=== PATIENT | male | born 1940 | race Caucasian/White ===

== ENCOUNTER 2024-06-25 12:25 | Inpatient (IN) | payer MEDICARE, OTHER, SELFPAY ==
[2024-06-25] VITALS (8 sets, daily range): BP systolic 146–178; BP diastolic 75–80; PULSE 67–81; RESP 16–89; TEMP 36.6–36.9; O2SAT 93–95; BMI 29.2
--- NOTE | 2024-06-25 14:59 | XR_ITS ---
Examination: PA lateral chest 2 views TECHNIQUE: Upright PA lateral chest 2 views Exam date and time: June 25, 2024 1508 hours Comparison September 11, 2017 INDICATIONS: Shortness of breath today. FINDINGS: Mild chronic heart failure pattern Mild enlargement left ventricle CABG Prominent vascular congestion Fluid in the fissures on the lateral view Moderate right mild to moderate left pleural effusions IMPRESSION: Mild chronic heart failure pattern
--- NOTE | 2024-06-25 14:59 | EKG_ITS ---
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
--- NOTE | 2024-06-25 15:01 | PD.EDSOB ---
ED SOB =RME/HPI General Chief Complaint: Shortness of Breath/Dyspnea Stated Complaint: DIFF BREATHING FOR 4 WEEKS Time Seen by Provider: 06/25/24 14:45 Source: patient Arrival date/time: 06/25/24 12:25 83-year-old male significant past medical history of hypertension, cardiac stent hyperlipidemia, CABG in 1998, presents to the emergency department with complaints of intermittent shortness of breath and cough ongoing for 1 month. Reports he was previously treated and evaluated by his PCP has been on a course of amoxicillin, doxycycline, prednisone and albuterol inhaler and no improvement in symptoms. + positive orthopnea, cough, worsening BLE. no fever, chills, abdominal pain, diarrhea, dysuria, hematuria, hematochezia, melena, focal weakness, fall, blunt trauma, loss of consciousness, incontinence Mode of arrival: ambulatory Related Data Home Medications ?Medication ?Instructions ?Recorded ?Confirmed aspirin 81 mg tablet,delayed 81 mg PO QDAY 05/12/18 06/25/24 release (Aspir-) atorvastatin 40 mg tablet 40 mg PO QDAY 05/12/18 06/25/24 benazepril 10 mg tablet 10 mg PO QDAY 05/12/18 06/25/24 glipizide 5 mg tablet 5 mg PO QDAY 05/12/18 06/25/24 albuterol 90 mcg/actuation aerosol 2 inhalation PRN PRN asthma 06/25/24 inhaler amlodipine 10 mg-benazepril 40 mg 10 - 40 cap PO DAILY 06/25/24 06/25/24 capsule doxycycline hyclate 100 mg capsule 100 mg BID 06/25/24 06/25/24 fluticasone furoate 100 2 inh inhalation BID 06/25/24 06/25/24 mcg-vilanterol 25 mcg/dose inhalation powder (Breo Ellipta) prednisone 10 mg tablet 10 mg TID 06/25/24 06/25/24 Previous Rx's ?Medication ?Instructions ?Recorded amoxicillin 875 mg-potassium 1 tab PO BID #20 tabs 07/13/23 clavulanate 125 mg tablet ibuprofen 800 mg tablet 800 mg PO TID PRN pain #30 tabs 07/13/23 Allergies Allergy/AdvReac Type Severity Reaction Status Date / Time No Known Allergies Allergy Verified 06/25/24 12:28 Review of Systems Review of Systems Systems Reviewed: All systems reviewed, normal except as documented Narrative Review of Systems: Gen: No fever, no chills, no weight loss EYES: No discharge, no visual changes, no pain HEENT: No ear pain, no congestion, no sore throat PULM: + shortness of breath, +cough, no congestion CV: No chest pain, no dyspnea on exertion, no palpitations GI: No nausea, no vomiting, no diarrhea, no pain, no constipation : No frequency, no urgency,? no dysuria Musc/skel: No joint pain, no back pain, +BLE Skin: No rash? e ED Exam Narrative Physical exam: VITAL SIGNS: Reviewed. GENERAL APPEARANCE: Alert and interactive, follows commands, no acute distress, well developed, nourished, appears well. HEAD AND FACE: Non-traumatic. ENT: PERRL, pink conjunctivitis, eyelid no trauma, anterior chamber clear. Pinnas intact and no signs of trauma or erythema. Tonsils, no exudates, no abscesses noted. Mucous membrane moist. NECK: Supple, nontender, no thyromegaly, no masses, no nuchal rigidity. CHEST:+ respiratory rate increased, mild rhonchi note,no crepitus, no paradoxical movement, no retractions. LUNGS:+ mild rhonchi, no stridor, good breath sounds bilaterally. HEART: Regular rate, regular rhythm, no murmur, no gallops. VASCULAR:+ bilateral leg edema +2 ABDOMEN: Soft, positive bowel sounds, nondistended, no guarding, nontender, no rebound, no masses, no hepatomegaly, no splenomegaly, no hernias. RECTAL: Deferred. GENITAL: Deferred. NEUROLOGICAL: Gross motor function intact sensory function intact, Appropriate for age. MUSCULOSKELETAL: low back nontender, full range of motion. SKIN: Color pink, dry, good skin turgor, no rash, no lacerations, no abrasions, no contusions. LYMPHATICS: Deferred. Course Quality Measures none Orders Category Date Time Status COVID-19 Screening Questionnaire NOW Care 06/25/24 21:44 Active Decision to Admit X1 Care 06/25/24 21:44 Completed EKG (ED ONLY) *Do not use* NOW Care 06/25/24 14:59 Completed Insert IV NOW Care 06/25/24 21:40 Active NPO STAT Care 06/25/24 14:59 Active Consult to Cardiology Stat Cons 06/25/24 21:44 Ordered EKG (ED Only) Stat Exams 06/25/24 14:59 Draft XR chest 2V Stat Exams 06/25/24 14:59 Completed BNP [B-Type Natriuretic Peptide] Stat Lab 06/25/24 15:28 Completed CBC Stat Lab 06/25/24 15:28 Completed Comprehensive Metabolic Panel Stat Lab 06/25/24 15:28 Completed Lipase Stat Lab 06/25/24 15:28 Completed Magnesium Stat Lab 06/25/24 15:28 Completed Troponin I Stat Lab 06/25/24 15:28 Completed Troponin I Stat Lab 06/25/24 20:09 Completed Urinalysis Stat Lab 06/25/24 15:36 Completed Aspirin Med 06/25/24 21:40 Discontinued 325 mg PO X1 ONE Furosemide Inj [Lasix Inj] Med 06/25/24 21:40 Discontinued 40 mg IVP X1 ONE Oxygen Delivery NOW RT 06/25/24 21:43 Active Vital Signs Vital signs: Vital Signs Temperature 97.9 F 06/25/24 14:04 Pulse Rate 80 06/25/24 14:04 Respiratory Rate 20 06/25/24 14:04 Blood Pressure 167/75 H 06/25/24 14:04 Pulse Oximetry (%) 93 L 06/25/24 14:04 Oxygen Delivery Method Room Air 06/25/24 14:04 Shortness of Breath / Dyspnea MDM Narrative MDM Narrative:: this 83-year-old male, who presented to the emergency department with worsening shortness of breath for 4 weeks. + BNP 680, opponent mildly elevated serial, + Positive BLE chest x-ray demonstrates mild CHF pattern. Patient's oxygen room air 87 patient placed on oxygen 2 L bringing up to 93%. Patient does not take any Lasix at home. on my opinion patient warrants admission for IV Lasix and serial troponin and EKG. EKG medically necessary in the evaluation of chest pain and interpreted by me and ED physician at the time of patient evaluation. Normal sinus rhythm with a rate of 65. DE and QT intervals within normal limits. No ST/T changes. No STEMI. 2155- spoke to Weigher Bulker on-call who will gladly follow-up on patient while in admission. 2199- I did go ahead and speak to the hospitalist on-call they will come and evaluate the patient for admission. Patient data External records reviewed:: [facility] previous records Clinical information provided by:: patient Social determinants that could affect healthcare access:: none Patient has the following chronic illnesses:: no How is presenting disease/condition affected by chronic disease/condition?: no chronic disease Evaluation data The following diagnostics were reviewed and interpreted by me:: lab results, radiology exam(s) and EKG tracing(s) Lab and/or radiology exams considered but not ordered:: no Interpretation Summary: Examination: PA lateral chest 2 views TECHNIQUE: Upright PA lateral chest 2 views Exam date and time: June 25, 2024 1508 hours Comparison September 11, 2017 INDICATIONS: Shortness of breath today. FINDINGS: Mild chronic heart failure pattern Mild enlargement left ventricle CABG Prominent vascular congestion Fluid in the fissures on the lateral view Moderate right mild to moderate left pleural effusions IMPRESSION: Mild chronic heart failure pattern Medications / Prescriptions Medications or Prescriptions considered but not ordered:: no Medication administrations:: Medication Administration History Discontinued Medications Aspirin (Aspirin 325 Mg Tablet) 325 mg PO X1 ONE Stop: 06/25/24 21:41 Last Admin: 06/25/24 22:14 Dose: 325 mg Documented By: CHON Furosemide (Furosemide Inj 10 Mg/Ml 4ml Vial) 40 mg IVP X1 ONE Stop: 06/25/24 21:41 Last Admin: 06/25/24 22:24 Dose: 40 mg Documented By: CHON all medications administered and effective Consultations Consultation(s) initiated? (list below): Yes Diagnosis Shortness of Breath Differential Diagnosis: acute exacerbation of chronic obstructive airways disease, congestive heart failure, community acquired pneumonia and asthma with exacerbation Most likely diagnosis given after review of the tests above:: acute CHF, NSTEMI Admission Indicated Admission indicated?: indicated Admission Request Was there a request for admission?: Yes Admission Attestation Admission request attestation: Discussed case with [] from Hospitalist service regarding admission. Discussed patients ED course, exam findings, labs, and radiology results. The Hospitalist [agrees,declines] to accept the patient for admission. Disposition Plan Disposition Plan: Admit Discharge Plan Plan Patient Disposition: Admit Acute Care w/in Hospital Prescriptions/Referrals Prescriptions/Med Rec: No Action atorvastatin 40 mg Tablet 40 mg PO QDAY aspirin [Aspir-81] 81 mg Tablet,Delayed Release (Dr/Ec) 81 mg PO QDAY benazepril 10 mg Tablet 10 mg PO QDAY glipizide 5 mg Tablet 5 mg PO QDAY amoxicillin-pot clavulanate 875-125 mg tablet 1 tab PO BID Qty: 20 0RF ibuprofen 800 mg tablet 800 mg PO TID PRN (Reason: pain) Qty: 30 0RF prednisone 10 mg tablet 10 mg TID doxycycline hyclate 100 mg capsule 100 mg BID Patient Comments: TAKE 1 CAPSULE BY MOUTH TWICE A DAY FOR 7 DAYS albuterol 90 mcg/actuation Aerosol 2 INHALATION PRN PRN (Reason: asthma) amlodipine-benazepril 10-40 mg capsule 10 - 40 cap PO DAILY Patient Comments: TAKE 1 CAPSULE DAILY fluticasone furoate-vilanterol [Breo Ellipta] 100-25 mcg/dose blister with device 2 inh INHALATION BID Patient Comments: INHALE 1 PUFF BY MOUTH DAILY Referrals: Kyle West MD [Primary Care Provider] - In 1 week Problem List Clinical Impression: Congestive heart failure, Non-ST elevation NV (NSTEMI) Patient/Caregiver Discharge Instructions Discharge Activity: activity as tolerated Print Language: [place] Stand Alone Forms: Jacqueline Award Info., Patient Portal Info Letter PA/BED PLACEMENT COORDINATOR Supervising Physician PA/BED PLACEMENT COORDINATOR Supervising Physician: Dr Ramirez
[2024-06-25 15:39] LABS: Basophils # (Auto) 0.1 Thou/mm3 (0.0-0.2); Basophils % (Auto) 1 % (0-2.5); Eosinophils # (Auto) 0.2 Thou/mm3 (0.0-0.5); Eosinophils % (Auto) 2 % (0-10); Hematocrit 46.1 % (41.0-53.0); Hemoglobin 15.4 g/dL (13.5-16.0); Immature Granulocytes % (Auto) 0 % (0-0); Immature Granulocytes Auto 0.03 Thou/mm3 (0.00-0.00); Lymphocytes # (Auto) 1.1 Thou/mm3 (1.0-4.8); Lymphocytes % (Auto) 13 % (10-50); Mean Corpuscular HGB Conc 33.4 g/dl (31.0-37.0); Mean Corpuscular Hemoglobin 33.3 pg (25.0-35.0); Mean Corpuscular Volume 100 fL (80-100); Monocytes # (Auto) 0.6 Thou/mm3 (0.0-0.8); Monocytes % (Auto) 8 % (0-12); Neutrophils # (Auto) 6.2 Thou/mm3 (1.8-7.7); Neutrophils % (Auto) 76 % (37-80); Nucleated Red Blood Cell % 0 /100 WBC (0); Platelet Count 178 Thou/mm3 (140-440); RDW Standard Deviation 52.6 fL (35.1-43.9); Red Blood Count 4.62 Miln/mm3 (4.50-5.90); White Blood Count 8.2 Thou/mm3 (3.8-10.6)
[2024-06-25 16:12] LABS: Collection Type, Urine Clean Catch; Squamous Epithelial Cell,Urine 0 /hpf (0-5)
[2024-06-25 16:20] LABS: Bilirubin,Urine Negative (Negative); Blood,Urine 1+ (Negative); Clarity,Urine Clear (Clear/Hazy); Color,Urine Lt-Yellow (Lt Yel-Yel); Glucose, Urine Trace (Negative); Ketones,Urine Negative (Negative); Leukocyte Esterase,Urine Negative (Negative); Nitrite,Urine Negative (Negative); Protein,Urine 2+ (Neg - Trace); RBC,Urine 2 /hpf (0-3); Specific Gravity,Urine 1.023 (1.001-1.035); Urobilinogen,Urine Negative mg/dL (0.0-1.0); WBC,Urine 1 /hpf (0-5)
[2024-06-25 16:21] LABS: Alanine Aminotransferase 57 U/L (10-49); Albumin, Serum 4.7 gm/dL (3.4-4.8); Albumin/Globulin Ratio 1.9 (1.2-2.2); Alkaline Phosphatase 116 U/L (46-116); Anion Gap 10 (7-16); Aspartate Amino Transferase 57 U/L (0-34); BUN/Creatinine Ratio 20 Ratio (12-20); Bilirubin,Total 1.2 mg/dL (0.3-1.2); Blood Urea Nitrogen 32 mg/dL (9-23); Calcium 9.9 mg/dL (8.3-10.6); Calcium (Corrected) 9.9 mg/dL (8.5-10.1); Carbon Dioxide 20.4 mMol/L (20.0-31.0); Chloride 112 mMol/L (98-107); Creatinine (Component) 1.6 mg/dL (0.6-1.3); Globulin 2.5 gm/dL (2.3-3.5); Glucose 208 mg/dL (74-106); Lipase 88 U/L (12-53); Magnesium 2.4 mg/dL (1.6-2.6); Osmolality,Calculated 296 (275-295); Potassium 5.2 mMol/L (3.4-5.1); Sodium 142 mMol/L (136-145); Total Protein 7.2 gm/dL (5.7-8.2); eGFR 43 See Note
[2024-06-25 16:27] LABS: Troponin I 1.094 ng/mL (0.0-0.045)
[2024-06-25 18:34] LABS: B-Type Natriuretic Peptide 631 pg/mL (0-100)
[2024-06-25 20:40] LABS: Troponin I 1.121 ng/mL (0.0-0.045)
[2024-06-25] MEDS: Aspirin 325 MG TABLET PO (22:14)
--- NOTE | 2024-06-25 22:16 | PC.NURSE ---
Leeann Fischer [phone] cell number.
[2024-06-25] MEDS: FUROSEMIDE INJ 10 MG/ML 4ML VIAL 40 MG IVP (22:24)
--- NOTE | 2024-06-25 23:59 | ESHP_ITS ---
Documentation for date of: 06/25/24 HPI History of Present Illness Chief complaint: Shortness of breath History of present illness: A 83-year-old male with past medical history of hypertension, CAD s/p CABG in 1990, s/p stenting in 2018, prostate cancer s/p surgery presented to the hospital with chief complaints of shortness of breath since 4 weeks. At his baseline patient walks around the house and feeds his animals on daily basis. Since 4 weeks, patient noted to have difficulty in breathing and found limitation in his daily activities and taking longer time to complete usual activities. Denies PND, orthopnea, wheezing. Reported that he does not lay on his back because of his back problem and at the bedside stated that patient is sleeping well with occasional snoring noted. Patient endorsed that he noted increased frequency of micturition but exactly during the nights. Denies burning micturition. Patient also endorsed that he is having lower extremity swelling since almost 2 years and is not using any diuretic. Bilateral lower extremity swelling is gradually progressing and at current time it is extending up to thigh, noted recent worsening with legs becoming harder. Denies abdominal distention, pain, palpitations, syncopal episodes, chest pain, lower extremity pain. Recently patient went to her primary care and received steroids, antibiotics. Patient is following Dr. Marie for the CAD. ED Course: -Initial vitals were blood pressure 167/71 mmHg, pulse rate 88 bpm, respiratory rate 20/min, temperature 97.9 ?F, SpO2 93% with oxygen 2 L nasal cannula. -Labs significant for sodium 142, potassium 5.2, chloride 112, BUN 32, creatinine 1.6, troponin 1.12, BNP 631. Urinalysis showed 2+ proteinuria. EKG showed normal sinus rhythm. Chest x-ray showed bilateral moderate vascular congestion with bilateral pleural effusion more on the right side -In the ED, patient was given 40 Mg of furosemide and a dose of 325 Mg aspirin -Patient was admitted for acute hypoxic respiratory failure secondary to acute exacerbation of heart failure Past medical history: hypertension, CAD s/p CABG in 1990, s/p stenting in 2018, prostate cancer s/p surgery Past surgical history: CABG, stent for CAD Social history: Denies smoking, alcohol or other illicit drug abuse Medications: Aspirin, atorvastatin, benazepril Review of Systems Review of Systems Narrative Review of Systems: Constitutional: No Weight Change, No Fever, No Chills, No Night Sweats, Fatigue, Malaise ENT/Mouth: No Hearing Changes, No Ear Pain, No Nasal Congestion, No Sinus Pain, No Hoarseness, No sore throat, No Rhinorrhea, No Swallowing Difficulty Eyes: No Eye Pain, No Swelling, No Redness, No Foreign Body, No Discharge, No Vision Changes Cardiovascular: No Chest Pain, SOB, No PND, Dyspnea on Exertion, No Orthopnea, Edema, No Palpitations Respiratory: No Cough, No Sputum, No Wheezing, Dyspnea Gastrointestinal: No Nausea, No Vomiting, No Diarrhea, No Constipation, No Pain, No Heartburn, No Anorexia, No Dysphagia, No Hematochezia, No Melena, No Flatulence, No Jaundice Genitourinary: No Dysuria, Increased Urinary Frequency, No Hematuria, No Urinary Incontinence, No Urgency, No Flank Pain, No Urinary Flow Changes, No Hesitancy Musculoskeletal: No Arthralgias, No Myalgias, No Joint Swelling, No Joint Stiffness, No Back Pain, No Neck Pain, No Injury History Skin: No Skin Lesions, No Pruritis Neuro: No Weakness, No Numbness, No Paresthesias, No Loss of Consciousness, No Syncope, No Dizziness, No Headache, No Coordination Changes, No Recent Falls Exam Vital Signs Temp Pulse Resp BP Pulse Ox O2 Del Method O2 Flow Rate 97.9 F 70 20 146/75 H 94 L Nasal Cannula 2 06/25/24 23:03 06/25/24 23:03 06/25/24 23:03 06/25/24 23:03 06/25/24 23:03 06/25/24 23:03 06/25/24 23:03 Narrative Exam General: Awake. Sitting on the bed with oxygen through nasal cannula HEENT: Normocephalic, atraumatic, mucous membranes moist. Heart: Regular rate and rhythm, pansystolic murmur heard best in the tricuspid area Lungs: Decreased breath sounds noted in right basal area with bilateral crackles heard. Abdomen: Soft, nondistended, nontender, positive bowel sounds. ?No guarding or rebound tenderness. Neurologic: Alert and oriented x3, no gross neurological deficit, and patient able to move all 4 extremities. Extremities: Bilateral pitting 4+ pedal edema with induration extending up to the thigh Skin: No rash or ecchymoses. Results: Labs 06/25/24 15:28 06/25/24 15:28 Labs: Short CBC 06/25/24 Range/Units 15:28 WBC 8.2 (3.8-10.6) Thou/mm3 Hgb 15.4 (13.5-16.0) g/dL Hct 46.1 (41.0-53.0) % Plt Count 178 (140-440) Thou/mm3 BMP 06/25/24 15:28 Sodium 142 Potassium 5.2 H Chloride 112 H Carbon Dioxide 20.4 BUN 32 H Creatinine 1.6 H Glucose 208 H Calcium 9.9 Cardiac Enzymes 06/25/24 06/25/24 Range/Units 15:28 20:09 Troponin I 1.094 H* 1.121 H* (0.0-0.045) ng/mL Liver Function 06/25/24 Range/Units 15:28 Total Bilirubin 1.2 (0.3-1.2) mg/dL AST 57 H (0-34) U/L ALT 57 H (10-49) U/L Alkaline Phosphatase 116 (46-116) U/L Albumin 4.7 (3.4-4.8) gm/dL Urine 06/25/24 Range/Units 15:36 Urine Color Lt-Yellow (Lt Yel-Yel) Urine Clarity Clear (Clear/Hazy) Urine pH 6.0 (5.0-7.0) Ur Specific [place] 1.023 (1.001-1.035) Urine Protein 2+ A (Neg - Trace) Urine Glucose (UA) Trace (Negative) Quality Measures Quality Measures none Advance care planning discussed with:: patient and spouse Medications Home Medications and Allergies Home Medications ?Medication ?Instructions ?Recorded ?Confirmed ?Type aspirin 81 mg tablet,delayed 81 mg PO QDAY 05/12/18 06/25/24 History release (Aspir-) atorvastatin 40 mg tablet 40 mg PO QDAY 05/12/18 06/25/24 History benazepril 10 mg tablet 10 mg PO QDAY 05/12/18 06/25/24 History glipizide 5 mg tablet 5 mg PO QDAY 05/12/18 06/25/24 History albuterol 90 mcg/actuation aerosol 2 inhalation PRN PRN asthma 06/25/24 History inhaler amlodipine 10 mg-benazepril 40 mg 10 - 40 cap PO DAILY 06/25/24 06/25/24 History capsule doxycycline hyclate 100 mg capsule 100 mg BID 06/25/24 06/25/24 History fluticasone furoate 100 2 inh inhalation BID 06/25/24 06/25/24 History mcg-vilanterol 25 mcg/dose inhalation powder (Breo Ellipta) prednisone 10 mg tablet 10 mg TID 06/25/24 06/25/24 History Allergies Allergy/AdvReac Type Severity Reaction Status Date / Time No Known Allergies Allergy Verified 06/25/24 12:28 Visit Medications Acetaminophen (Acetaminophen 325 Mg Tablet) 650 mg PO Q6H PRN PRN Reason: Fever >101.5 Stop: 07/25/24 23:01 Albuterol/Ipratropium (Albuterol/Ipratropium (Duoneb) Rt [place] 3 Ml Nebu) 3 ml INH Q6HRRT ALMITA Stop: 07/26/24 00:59 Heparin Sodium (Porcine) (Heparin Sod Inj 5000 Unit/Ml Vial) 5,000 unit SC Q8HR ALMITA Stop: 07/10/24 05:59 Magnesium Hydroxide (Milk Of Magnesia Susp 30 Ml Udc) 30 ml PO QDAY PRN; Protocol PRN Reason: CONSTIPATION Stop: 07/25/24 23:01 Ondansetron HCl (Ondansetron Inj 2 Mg/Ml Inj 2 Ml) 4 mg IV Q6H PRN; Protocol PRN Reason: NAUSEA OR VOMITING Stop: 07/25/24 23:01 Discontinued Medications Aspirin (Aspirin 325 Mg Tablet) 325 mg PO X1 ONE Stop: 06/25/24 21:41 Last Admin: 06/25/24 22:14 Dose: 325 mg Furosemide (Furosemide Inj 10 Mg/Ml 4ml Vial) 40 mg IVP X1 ONE Stop: 06/25/24 21:41 Last Admin: 06/25/24 22:24 Dose: 40 mg Assessment & Plan Plan A 83-year-old male with past medical history of hypertension, CAD s/p CABG in 1990, s/p stenting in 2017, prostate cancer s/p surgery presented to the hospital with chief complaints of shortness of breath since 4 weeks and admitted for acute hypoxic respiratory failure secondary to acute decompensated heart failure # Acute hypoxic respiratory failure # Acute decompensated heart failure # Ischemic cardiomyopathy # CAD s/p CABG and stent -Patient had history of CABG in 1990 and stenting done in 2018, following Dr. Marie -Presented with shortness of breath, limitation of daily activities since 4 weeks with no PND and orthopnea episodes -Also endorsed lower extremity swelling since 2 years and not using any diuretics, which was recently worsening -Also endorsed increased frequency of micturition during the night -On examination, decreased breath sounds are noted on right basal areas with bilateral fine crepitus heard -Vitals at the time of admission are blood pressure 167/74 mmHg, pulse rate 80/min, temperature 97.9 ?F, respiratory rate 20/min, SpO2 93% with 2 L oxygen -Labs significant for potassium 5.2, chloride 112, BUN 32, creatinine 1.6 troponin 1.12, BNP 631 -EKG showed normal sinus rhythm. Chest x-ray showed bilateral moderate vascular congestion with bilateral pleural effusion more on right -Patient received a dose of 40 Mg IV Lasix in the ED Plan -Sodium and fluid restriction(1500 mL) -Oxygen as needed and recommended to titrate based on saturations -IV Bumex 2 Mg twice daily, titrate the dose based on urine output -Strict input and output charting -Continue aspirin and atorvastatin -Echocardiogram was ordered -Cardiology was consulted # Elevated troponins, type II in the setting of heart failure -Troponin at the time of admission is 1.094 >1.121 -Repeat troponin levels were ordered and follow-up with the results # Hyperkalemia Likely due to CKD -Potassium is 5.2 -Patient was given Lasix and albuterol inhalation -Recommended to follow levels with the morning labs # Chronic kidney disease, stage IIIb # Likely cardiorenal syndrome in the setting of heart failure -Baseline creatinine in 09/2023 is 1.6 -Creatinine at the time of admission is 1.6 -Noted 2+ proteinuria on urine analysis Plan -Renal ultrasound is ordered -Urine microalbumin and creatinine ratio is ordered -Patient is using benazepril as home medication, held for now # Transaminitis, mild -Likely in the setting of fluid overload -Will monitor liver functions if needed # History of hypertension -Patient is using Benazepril and amlodipine at home -Withheld antihypertensives for now to allow blood pressure room for diuretics # History of diabetes mellitus Patient is using glipizide 5 Mg at home -HbA1c in 02/2024 is within normal limits -Random blood glucose is 203 at the time of admission, likely elevated due to the uses of steroid prescribed by the PCP for shortness of breath -Repeat HbA1c is ordered. Hospital Maintenance: Dispo: [facility] DVT ppx: Heparin GI ppx: Not required Diet: Low-sodium and fluid restriction to 1500 mL IV lines: Peripheral Code status: DNR/DNI Patient plan of care was discussed with the attending physician, Dr. Radha Reaves, PGY1 Attending Provider Attestation/Addendum I discussed with and supervised the resident physician who took care of this patient. I agree with the assessment and plan as above. 83-year-old male patient with coronary artery disease status post CABG was admitted for increased work of breathing, peripheral edema. Patient will hypoxic on admission. He was admitted for acute hypoxic respiratory failure secondary to congestive heart failure with decompensation. EKG showed sinus rhythm with nonspecific ST-T wave changes. Chest x-ray showed pulmonary vascular congestion and pleural effusion. Patient will be admitted for management of acute respiratory failure with hypoxia secondary to congestive heart failure with decompensation.
[2024-06-26] VITALS (15 sets, daily range): BP systolic 139–156; BP diastolic 68–99; PULSE 55–79; RESP 16–92; TEMP 36.1–36.6; O2SAT 90–99; BMI 27.6
--- NOTE | 2024-06-26 00:47 | ECHO_ITS ---
Transthoracic Echo Report Ht (in): 67 Wt (lb): 186 Exam Location: Portable Status: Inpatient Vacation Guide: Eugenia Platt Indications: Procedure Performed: BP: 140 / 99 HR: 59 Rhythm: Bradycardia Technical Quality: Fair MEASUREMENTS (Male / Female) Normal Values 2D ECHO LV Diastolic Diameter PLAX 5.4 cm 4.2 - 5.9 / 3.9 - 5.3 cm LV Systolic Diameter PLAX 4.3 cm IVS Diastolic Thickness 0.9 cm 0.6 - 1.0 / 0.6 - 0.9 cm LVPW Diastolic Thickness 0.9 cm 0.6 - 1.0 / 0.6 - 0.9 cm LV Relative Wall Thickness 0.3 LVOT Diameter 1.9 cm LA Volume Index 42.7 cm?/m? 16 - 28 cm?/m? Ascending Aorta Diameter 3.0 cm M-MODE Aortic Root Diameter MM 2.5 cm LA Systolic Diameter MM 4.0 cm LA Ao Ratio MM 1.6 MV E Point Septal Separation 1.1 cm AV Cusp Separation MM 1.7 cm DOPPLER AV Peak Velocity 345.8 cm/s AV Peak Gradient 47.8 mmHg AV Mean Gradient 26.8 mmHg AV Velocity Time Integral 89.7 cm AI Peak Velocity 405.0 cm/s AI Peak Gradient 65.6 mmHg AI Pressure Half Time 440.0 ms LVOT Peak Velocity 114.0 cm/s LVOT Peak Gradient 5.2 mmHg LVOT Velocity Time Integral 26.3 cm LVOT Cardiac Index 2178.7 cm?/min?m? AV Area Cont Eq vti 0.8 cm? AV Area Cont Eq pk 0.9 cm? MV Peak Velocity 145.0 cm/s MV Peak Gradient 8.4 mmHg MV Mean Velocity 65.8 cm/s MV Mean Gradient 2.0 mmHg MV Area PHT 4.0 cm? MR Peak Velocity 525.5 cm/s MR Peak Gradient 110.5 mmHg Mitral E Point Velocity 104.0 cm/s Mitral A Point Velocity 78.1 cm/s Mitral E to A Ratio 1.3 LV E' Lateral Velocity 6.4 cm/s Mitral E to LV E' Lateral Ratio 16.2 LV E' Septal Velocity 5.0 cm/s Mitral E to LV E' Septal Ratio 20.8 TR Peak Velocity 313.0 cm/s TR Peak Gradient 39.2 mmHg FINDINGS Left Ventricle Normal left ventricular size, wall thickness. Mild systolic dysfunction. Mild hypokinesis inferior posterior wall. The ejection fraction is visually estimated at 40- 45%. Right Ventricle The right ventricle is moderately dilated. Normal systolic function. The estimated right ventricula r systolic pressure, 54 mmHg. RAP 15. Left Atrium The left atrium is mildly dilated. Right Atrium The right atrium is severely dilated. Atrial Septum The interatrial septum appears normal with no evidence of a shunt. Aorta The aorta is normal by two-dimensional, color flow and Doppler interrogation. Mitral Valve The mitral valve is mildly MAC. There is moderate mitral valve regurgitation. Aortic Valve The aortic valve is trileaflet. Moderate stenosis, mean gradient 29mmHg, vmax 3.6m/s. There is mild aortic valve regurgitation. Tricuspid Valve The tricuspid valve is normal by two-dimensional, color flow and Doppler interrogation. There is mil d to moderate tricuspid valve regurgitation. Pulmonic Valve There is mild pulmonic valve regurgitation. Vessels The pulmonary artery appears normal. The inferior vena cava pulmonary and hepatic veins appear gisella l. Pericardium The pericardium is normal by two-dimensional imaging. There is no significant pericardial effusion. 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 Peak Gradient 52 mm HG Normal LV size. with inferior and posterior wall kypokinesis LVEF 40-45% Moderate RV dilatation. Estimated RVSP 54mmHg Biatrial enlargement Mild MAC with mild to moderate mitral regurgitation. Mild to moderate TR. Pleural effusion present. MIld aortic and pulmonic valve regurgitation Ernestine Bautista (Electronically Signed) Final Date: 26 June 2024 12:50
[2024-06-26] MEDS: ALBUTEROL/IPRATROPIUM (Duoneb) RT SOL 3 ML NEBU INH ×3 (01:06→12:49)
[2024-06-26] MEDS: ALBUTEROL RT 2.5 MG/3 ML NEBU INH (01:07)
--- NOTE | 2024-06-26 01:22 | XR_ITS ---
Examination: Retroperitoneal ultrasound, complete Technique: Multiple high resolution grayscale images of the retroperitoneum obtained, including kidneys and bladder. Exam date and time:June 26, 2023 at 0420 hrs. Indications: Diagnosis chronic kidney disease Findings: Right kidney 9.9 x 5.3 x 5.3 cm cortex 1.3 cm Left kidney 10.4 x 5.7 x 5.6 cm renal cortex 1.5 cm Moderate bilateral renal parenchymal scar formation No hydronephrosis or renal calculi No bladder mass or bladder calculi Bladder prevoid volume 353 cc No prostate tissue noted Impression: Bilateral renal cortical thinning Moderate bilateral renal parenchymal scar formation No hydronephrosis
[2024-06-26] MEDS: FUROSEMIDE INJ 10 MG/ML 4ML VIAL 40 MG IVP (01:24)
[2024-06-26 05:20] LABS: Basophils # (Auto) 0.1 Thou/mm3 (0.0-0.2); Basophils % (Auto) 1 % (0-2.5); Eosinophils # (Auto) 0.4 Thou/mm3 (0.0-0.5); Eosinophils % (Auto) 5 % (0-10); Hematocrit 43.8 % (41.0-53.0); Hemoglobin 14.6 g/dL (13.5-16.0); Immature Granulocytes % (Auto) 0 % (0-0); Immature Granulocytes Auto 0.02 Thou/mm3 (0.00-0.00); Lymphocytes # (Auto) 1.1 Thou/mm3 (1.0-4.8); Lymphocytes % (Auto) 17 % (10-50); Mean Corpuscular HGB Conc 33.3 g/dl (31.0-37.0); Mean Corpuscular Hemoglobin 33.2 pg (25.0-35.0); Mean Corpuscular Volume 100 fL (80-100); Monocytes # (Auto) 0.6 Thou/mm3 (0.0-0.8); Monocytes % (Auto) 9 % (0-12); Neutrophils # (Auto) 4.7 Thou/mm3 (1.8-7.7); Neutrophils % (Auto) 68 % (37-80); Nucleated Red Blood Cell % 0 /100 WBC (0); Platelet Count 189 Thou/mm3 (140-440); RDW Standard Deviation 52.1 fL (35.1-43.9); White Blood Count 6.9 Thou/mm3 (3.8-10.6)
[2024-06-26 05:27] LABS: Glucose Estimated Average 146 mg/dL (80-131); Hemoglobin A1C 6.7 % Hgb (4.8-6.0)
[2024-06-26] MEDS: HEPARIN SOD INJ 5000 UNIT/ML VIAL SC ×3 (05:54→21:16)
[2024-06-26 06:14] LABS: Anion Gap 12 (7-16); BUN/Creatinine Ratio 16 Ratio (12-20); Blood Urea Nitrogen 24 mg/dL (9-23); Calcium 9.3 mg/dL (8.3-10.6); Cardiac Risk Estimate 2.5 RATIO (4.0-6.7); Chloride 109 mMol/L (98-107); Cholesterol 140 mg/dL (132-200); Creatinine (Component) 1.5 mg/dL (0.6-1.3); Estimated Creatinine Clearance 38.5 mL/min (>60); Glucose 155 mg/dL (74-106); HDL Cholesterol 57 mg/dL (40-60); LDL Cholesterol,Calculated 59 mg/dL (0-130); Osmolality,Calculated 291 (275-295); Potassium 3.7 mMol/L (3.4-5.1); Sodium 143 mMol/L (136-145); Thyroid Stimulating Hormone 1.14 uIU/mL (0.55-4.78); Triglycerides 120 mg/dL (30-150); eGFR 46 See Note
[2024-06-26 06:25] LABS: Troponin I 0.958 ng/mL (0.0-0.045)
--- NOTE | 2024-06-26 08:39 | PRELIM_ITS ---
Renal/Retroperitoneal ultrasound. June 26, 2024 0420 hours Clinical history: CKD.Technique: Duplex scan of the bilateral renal arterial and venous tree was performed utilizing 2D grayscale imaging, D oppler spectral analysis and color flow. Comparison: No prior study is available for comparison. Find ings:Right: The right kidney measures 9.9 x 5.3 x 5.3 cm and is unremarkable. Renal cortex is 1.3 cm. Renal cortex scarring is noted. There is no hydronephrosis or renal calculus. The corticomedullary d ifferentiation is maintained.Left: The left kidney measures 10.4 x 5.7 x 5.6 cm and is unremarkable. Renal cortex is 1.5 cm. Renal cortical scarring is noted. There is no hydronephrosis or renal calculu s. The corticomedullary differentiation is maintained.Jets are not seen in the urinary bladder. The u rinary bladder with prevoid volume is 353.4 cc (11.1 x 7.8 x 8.0 cm). The patient is unable to void t he bladder.The prostate is surgically absent.Impression:Unremarkable renal ultrasound examination. Re port Electronically Signed By: Lupe Vegas 06/26/2024 8:41:20 AM [EST]
[2024-06-26] MEDS: ASPIRIN EC 81 MG TABEC PO (09:14)
[2024-06-26] MEDS: BUMETANIDE INJ 0.25 MG/ML VIAL 4 ML 2 MG IVP (09:14)
[2024-06-26] MEDS: ATORVASTATIN CALCIUM 20 MG TABLET 40 MG PO (09:14)
--- NOTE | 2024-06-26 10:59 | PC.SS ---
Initial assessment: This is 83 year old male admitted for heart failure. Patient appeared alert and oriented. Patient informs he lives with his , Aaliyah. Patient confirmed demographic information. Patient's , Aaliyah was identified as the patient's alternate medical surrogate decision maker. Patient describes to be independent with ADL's. Patient denies use of DME at home. Patient's PCP is Dr. Kyle West. Pharm[facility] in [place]. The discharge plan was discussed, and the patient would like to return home once medically cleared. Patient's to assist with transportation home. No needs identified at this time. client services administrator to remain available to address further concerns. D/c plan: home Next of kin: , Aaliyah Gaytan
--- NOTE | 2024-06-26 11:44 | ESCONSULT_ITS ---
RE: DORI HORVATH : 1940 DATE OF CONSULTATION: 06/25/2024 CONSULTING PHYSICIAN: Hospitalist, emergency room physician. REASON FOR CONSULTATION: Evaluation of shortness of breath and chest pressure with troponin elevation. HISTORY OF PRESENT ILLNESS: The patient is an 83-year-old male with a longstanding history of known coronary artery disease, status post bypass surgery x4 in 1990, recent angiogram in 2018. At that time, multivessel disease. Grafts were patent, but one of the vein grafts to diagonal branch had a stent placed in [address] Dony Marie. Also history of prostate carcinoma status post __ surgery. He apparently had progressive shortness of breath on minimal exertion or even at rest for the last 2-3 weeks. Came to the hospital with some swelling of both lower extremities as well. He came to the hospital with these symptoms and EKG with nonspecific changes, but cardiac enzymes were elevated. Troponin was elevated up to 1.12 and trending down slightly. BNP is 631. He was admitted with the diagnosis of acutely decompensated congestive heart failure and elevated troponin levels. He is feeling a little better. He did receive a dose of Lasix in the emergency room. He does not complain of any chest pain. He says he did not have any chest pain even when he had previous stent placement, mostly shortness of breath. ALLERGIES: NONE. MEDICATIONS: He is on multiple medications including at home 1. Atorvastatin 40 mg daily. 2. Benazepril 10 mg daily. 3. Glipizide 5 mg daily. 4. Amlodipine 10 - benazepril 40 daily. 5. Prednisone 10 daily. 6. Aspirin 81 daily. PAST MEDICAL HISTORY: CAD, hypertension, bypass graft surgery, chronic kidney disease stage IIIB, and history of most recent angiogram in 2018 showed the patient had multivessel disease, ejection fraction of 45% to 50% with hypokinesis and diagonal branch graft had stenosis, subsequently went down to have stent placement. RODRÍGUEZ to LAD and circumflex artery grafts were also patent. REVIEW OF SYSTEMS: CARDIOVASCULAR: Shortness of breath predominantly, orthopnea. GASTROINTESTINAL: No nausea, vomiting. MUSIC TYPOGRAPHER: No neurologic symptoms. PHYSICAL EXAMINATION: GENERAL: A well-nourished, pleasant male, alert, awake, and in no acute distress. VITAL SIGNS: Blood pressure 140/90, pulse rate is 64, respirations 16, temperature is normal. HEAD: Atraumatic and normocephalic. EYES: Normal. ENT: Unremarkable. NECK: No significant JVD today. Carotid pulse felt with no bruit. CHEST: Symmetrical. LUNGS: Clear to auscultation. HEART: S1 and S2 regular. No gallops. ABDOMEN: Thin and soft. EXTREMITIES: 1+ edema of both feet. GENITOURINARY AND RECTAL: Not performed. NEUROLOGIC: Normal. DIAGNOSTIC DATA: Electrocardiogram showed normal sinus rhythm and poor R-wave progression in precordial leads and possible old inferior wall myocardial infarction, age undetermined. Cardiac enzymes were slightly elevated. Troponin levels were initially 1.0, went to 1.12, now 0.95. Chest x-ray showed evidence of mild pulmonary congestion and mild cardiomegaly and moderate pleural effusion and pain. LABORATORY DATA: His other lab data showed elevated creatinine of 1.5. Creatinine clearance is 38, BUN 24. IMPRESSION/ASSESSMENT: 1. Acutely decompensated congestive heart failure with preserved ejection fraction, HFpEF. 2. Coronary artery disease, status post bypass graft surgery and stent placement. 3. Elevated troponin level possibly type 2 troponin level versus acute non-ST segment elevation myocardial infarction. 4. Chronic kidney disease, elevated creatinine. 5. Hypertension. RECOMMENDATIONS: The patient is an 83-year-old male with known history of longstanding CAD, bypass surgery in 1990 and stent placement to vein graft in 2018, presented to the hospital progressive shortness of breath with congestive heart failure symptoms, possibly due to worsening of LV dysfunction, we will get a cardiac echo Doppler study for assessment LV function, continue to trend the troponin levels. It appears like troponin levels could be due to type 2 troponin from heart failure, but it could also be acute ischemic syndrome. Hence, I agree with the treatment of the patient with IV heparin and continue the aspirin and I will discuss with Dr. Dony Marie if he is available, we will sign out to him tomorrow. The patient may require coronary angiogram depending on the clinical progress over the next 24 hours. I agree with pleasant medical management with IV heparin and also treatment of heart failure with IV Bumex, diuretic therapy, and optimize the congestive heart failure management. Depending on renal function, we will restart the patient on ERNESTO inhibitor or ARB. Also, we will consider adding beta-colette as well since he is not on any beta-colette currently. Preferably carvedilol or metoprolol succinate since the patient has heart failure with reduced ejection fraction. I would like to thank you for referring the patient for cardiovascular evaluation. We will be glad to follow the patient with you. I will also discuss with Dr. Marie in the morning. DT: 08:08:49 TT: 11:38:00 Ref: [id number] - TID: [id number] MTDD
--- NOTE | 2024-06-26 13:43 | ESPR_ITS ---
<Statement entered by Nikolas Santamaria MD - 06/30/24 14:17> I reviewed above note and agree with findings and plans. I have also personally examined the patient with medicine team and went over assessment and plan with medical team including technology development intern and resident physician. Documentation for date of: 06/26/24 Subjective Subjective Interval history: Patient seen at bedside. Resting comfortably in bed. Oxygen is being titrated down. Patient is -4 L with diuretics so we will decrease the dose of the diuretics. Patient was consulted by Dr. Dias who suggested that the patient would benefit from heparin drip due to NSTEMI. Cardiac echo exam pending. Continue with fluid restriction. Exam Vital Signs Temp Pulse Resp BP Pulse Ox O2 Del Method O2 Flow Rate 97.0 F 67 18 139/70 H 96 Nasal Cannula 1 06/26/24 12:00 06/26/24 12:57 06/26/24 12:57 06/26/24 12:00 06/26/24 12:57 06/26/24 12:00 06/26/24 12:57 Narrative Exam General: Awake. Sitting on the bed with oxygen through nasal cannula HEENT: Normocephalic, atraumatic, mucous membranes moist. Heart: Regular rate and rhythm, pansystolic murmur heard best in the tricuspid area Lungs: Decreased breath sounds noted in right basal area with bilateral crackles heard. Abdomen: Soft, nondistended, nontender, positive bowel sounds. ?No guarding or rebound tenderness. Neurologic: Alert and oriented x3, no gross neurological deficit, and patient able to move all 4 extremities. Extremities: Bilateral pitting 4+ pedal edema with induration extending up to the thigh Skin: No rash or ecchymoses. Objective Labs 06/26/24 04:52 06/26/24 04:52 Labs: Laboratory Results - last 24 hr 06/25/24 06/25/24 06/25/24 15:28 15:36 20:09 WBC 8.2 RBC 4.62 Hgb 15.4 Hct 46.1 MCV 100 MCH 33.3 MCHC 33.4 RDW Std Deviation 52.6 H Plt Count 178 Neut % (Auto) 76 Lymph % (Auto) 13 [place] % (Auto) 8 Eos % (Auto) 2 Baso % (Auto) 1 Neut # (Auto) 6.2 Lymph # (Auto) 1.1 Hamilton # (Auto) 0.6 Eos # (Auto) 0.2 Baso # (Auto) 0.1 Immature Gran # (Auto) 0.03 H Absolute Nucleated RBC 0.00 Immature Gran % 0 Nucleated RBC % 0 Sodium 142 Potassium 5.2 H Chloride 112 H Carbon Dioxide 20.4 Anion Gap 10 BUN 32 H Creatinine 1.6 H Estim Creat Clear Calc 37.0 L eGFR 43 L BUN/Creatinine Ratio [address] Glu mg/dL Hemoglobin A1c Calculated Osmolality 296 H Calcium 9.9 Corrected Calcium 9.9 Magnesium 2.4 Total Bilirubin 1.2 AST 57 H ALT 57 H Alkaline Phosphatase 116 Troponin I 1.094 H* 1.121 H* B-Natriuretic Peptide 631 H* Total Protein 7.2 Albumin 4.7 Globulin 2.5 Albumin/Globulin Ratio 1.9 Triglycerides Cholesterol LDL Cholesterol, Calc HDL Cholesterol Cholesterol/HDL Ratio Lipase 88 H TSH Ur Collection Type Clean Catch Urine Color Lt-Yellow Urine Clarity Clear Urine pH 6.0 Ur Specific [place] 1.023 Urine Protein 2+ A Urine Glucose (UA) Trace Urine Ketones Negative Urine Blood 1+ A Urine Nitrite Negative Urine Bilirubin Negative Urine Urobilinogen (Auto) Negative Ur Leukocyte Esterase Negative Urine RBC 2 Urine WBC 1 Ur Squamous Epith Cells 0 Urine Bacteria None 06/26/24 04:52 WBC 6.9 RBC 4.40 L Hgb 14.6 Hct 43.8 MCV 100 MCH 33.2 MCHC 33.3 RDW Std Deviation 52.1 H Plt Count 189 Neut % (Auto) 68 Lymph % (Auto) 17 [place] % (Auto) 9 Eos % (Auto) 5 Baso % (Auto) 1 Neut # (Auto) 4.7 Lymph # (Auto) 1.1 [place] # (Auto) 0.6 Eos # (Auto) 0.4 Baso # (Auto) 0.1 Immature Gran # (Auto) 0.02 H Absolute Nucleated RBC 0.00 Immature Gran % 0 Nucleated RBC % 0 Sodium 143 Potassium 3.7 D Chloride 109 H Carbon Dioxide 22.0 Anion Gap 12 BUN 24 H Creatinine 1.5 H Estim Creat Clear Calc 38.5 L eGFR 46 L BUN/Creatinine Ratio 16 [address]ucose [address] Glu mg/dL 146 H Hemoglobin A1c 6.7 H Calculated Osmolality 291 Calcium 9.3 Corrected Calcium Magnesium 2.0 Total Bilirubin AST ALT Alkaline Phosphatase Troponin I 0.958 H* B-Natriuretic Peptide Total Protein Albumin Globulin Albumin/Globulin Ratio Triglycerides 120 Cholesterol 140 LDL Cholesterol, Calc 59 HDL Cholesterol 57 Cholesterol/HDL Ratio 2.5 L Lipase TSH 1.14 Ur Collection Type Urine Color Urine Clarity Urine pH Ur Specific [place] Urine Protein Urine Glucose (UA) Urine Ketones Urine Blood Urine Nitrite Urine Bilirubin Urine Urobilinogen (Auto) Ur Leukocyte Esterase Urine RBC Urine WBC Ur Squamous Epith Cells Urine Bacteria Quality Measures Quality Measures none Advance care planning discussed with:: patient Assessment & Plan Assessment Current Active Medications: Generic Name Dose Route Start Last Admin Trade Name Freq PRN Reason Stop Dose Admin Acetaminophen 650 mg 06/25/24 23:02 Acetaminophen 325 Mg Tablet PO 07/25/24 23:01 Q6H PRN Fever >101.5 Albuterol/Ipratropium 3 ml 06/26/24 01:00 06/26/24 12:49 Albuterol/Ipratropium (Duoneb) Rt [place] 3 Ml Nebu INH 07/26/24 00:59 3 ml Q6HRRT ALMITA Administration Aspirin 81 mg 06/26/24 09:00 06/26/24 09:14 Aspirin Ec 81 Mg Tabec PO 07/26/24 08:59 81 mg QDAY ALMITA Administration Atorvastatin Calcium 40 mg 06/26/24 09:00 06/26/24 09:14 Atorvastatin Calcium 20 Mg Tablet PO 07/26/24 08:59 40 mg QDAY ALMITA Administration Bumetanide 1 mg 06/26/24 21:00 Bumetanide Inj 0.25 Mg/Ml Vial 4 Ml IVP 07/26/24 20:59 BID ALMITA Heparin Sodium (Porcine) 5,000 unit 06/26/24 06:00 06/26/24 05:54 Heparin Sod Inj 5000 Unit/Ml Vial SC 07/10/24 05:59 5,000 unit Q8HR ALMITA Administration Heparin Sodium (Porcine) 4,000 unit 06/26/24 12:28 Heparin Sod Inj 5000 Unit/Ml Vial IV 06/26/24 12:29 X1 ONE Protocol Heparin Sodium/Dextrose 25,000 unit in 250 mls @ 9.596 mls/hr 06/26/24 12:30 Heparin In D5w Ivpb IV 07/10/24 12:29 .Q24H ALMITA Protocol 12 UNITS/KG/HR Magnesium Hydroxide 30 ml 06/25/24 23:02 Milk Of Magnesia Susp 30 Ml Udc PO 07/25/24 23:01 QDAY PRN CONSTIPATION Protocol Ondansetron HCl 4 mg 06/25/24 23:02 Ondansetron Inj 2 Mg/Ml Inj 2 Ml IV 07/25/24 23:01 Q6H PRN NAUSEA OR VOMITING Protocol Plan A 83-year-old male with past medical history of hypertension, CAD s/p CABG in 1990, s/p stenting in 2018, prostate cancer s/p surgery presented to the hospital with chief complaints of shortness of breath since 4 weeks and admitted for acute hypoxic respiratory failure secondary to acute decompensated heart failure # Acute hypoxic respiratory failure # Acute decompensated heart failure # Ischemic cardiomyopathy # CAD s/p CABG and stent -Patient had history of CABG in 1990 and stenting done in 2017, following Dr. Marie -Presented with shortness of breath, limitation of daily activities since 4 weeks with no PND and orthopnea episodes -Also endorsed lower extremity swelling since 2 years and not using any diuretics, which was recently worsening -Also endorsed increased frequency of micturition during the night -On examination, decreased breath sounds are noted on right basal areas with bilateral fine crepitus heard -Vitals at the time of admission are blood pressure 167/74 mmHg, pulse rate 80/min, temperature 97.9 ?F, respiratory rate 20/min, SpO2 93% with 2 L oxygen -Labs significant for potassium 5.2, chloride 112, BUN 32, creatinine 1.6 troponin 1.12, BNP 631 -EKG showed normal sinus rhythm. Chest x-ray showed bilateral moderate vascular congestion with bilateral pleural effusion more on right -Patient received a dose of 40 Mg IV Lasix in the ED Plan -Sodium and fluid restriction(1500 mL) -Oxygen as needed and recommended to titrate based on saturations -Bumex 1 mg twice daily -Strict input and output charting -Continue aspirin and atorvastatin -Echocardiogram pending -Cardiology consulted, Dr. Dias states that patient would benefit from daily aspirin along with heparin drip for NSTEMI # NSTEMI type II likely -Troponin at the time of admission is 1.094 >1.121 and down trended to 0.958 -Repeat troponin levels were ordered and follow-up with the results -Pending Dr. Marie recommendations # Hyperkalemia Likely due to CKD -Patient was given Lasix and albuterol inhalation -Recommended to follow levels with the morning labs # Chronic kidney disease, stage IIIb # Likely cardiorenal syndrome in the setting of heart failure -Baseline creatinine in 09/2023 is 1.6 -Creatinine at the time of admission is 1.6 -Noted 2+ proteinuria on urine analysis Plan -Renal ultrasound Bilateral renal cortical thinning Moderate bilateral renal parenchymal scar formation -Urine microalbumin and creatinine ratio is ordered -Patient is using benazepril as home medication, held for now # Transaminitis, mild -Likely in the setting of fluid overload -Will monitor liver functions if needed # History of hypertension -Patient is using Benazepril and amlodipine at home -Withheld antihypertensives for now to allow blood pressure room for diuretics # History of diabetes mellitus Patient is using glipizide 5 Mg at home -HbA1c in 02/2024 is within normal limits -Random blood glucose is 203 at the time of admission, likely elevated due to the uses of steroid prescribed by the PCP for shortness of breath -Repeat HbA1c is ordered. Plan of care discussed with my senior Dr. Hewitt and my attending Dr. Hina Dockery MD PGY-1 Hospital Maintenance: Dispo: Medtele DVT ppx: Heparin GI ppx: Not required Diet: Low-sodium and fluid restriction to 1500 mL IV lines: Peripheral Code status: DNR/DNI
[2024-06-26 14:04] LABS: Partial Thromboplastin Time 26.1 Seconds (22.0-36.0)
--- NOTE | 2024-06-26 15:54 | PC.SS ---
Rounding note: cardiac echo exam pending. Plan is to titrate down the patient's oxygen.
--- NOTE | 2024-06-26 16:09 | ESCONSULT_ITS ---
RE: DORI HORVATH : 1940 DATE OF CONSULTATION: 06/26/2024 REFERRING PHYSICIAN: Hospitalist. HISTORY OF PRESENT ILLNESS: Mr. 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 The patient is also known to have a history of chronic hypertension, history of hyperlipidemia, history of intracoronary stent placement in 2018 to the vein bypass graft to the ramus intermedius branch, history of prostate cancer requiring previous surgery. The patient also has a history of diabetes mellitus. The patient has been having progressively increasing history of diabetes mellitus, history of aortic stenosis, and previous cardiac echo Doppler study done as an outpatient showed moderate to severe aortic stenosis. The patient was advised cardiac catheterization and coronary angiography though the patient wanted to wait. For the last 4-6 weeks, the patient has been having symptoms of increasing shortness of breath, increasing swelling of the feet, as well as generalized weakness, fatigue, and loss of appetite. The symptoms have been getting progressively worse. The patient was prescribed antibiotic therapy by Dr. West as an outpatient without any significant relief because of the persistence of these symptoms. The patient was seen in the Emergency Room and was noted to be in congestive heart failure. The patient also was noted to have mildly elevated troponin level and also elevated BNP level. The patient since hospitalization has been treated with diuretic therapy with some improvement in the symptoms. Presently, the patient is resting fairly comfortably in bed. The patient denied any complaint of chest pain. Denied any complaint of skipped beats or palpitations. Denies any complaints of dizziness or diaphoresis. The patient had cardiac echo Doppler study done earlier today, which showed moderate to severe aortic stenosis with mild aortic regurgitation. Mild to moderate mitral regurgitation was also reported. The patient also was reported to have mild to moderate tricuspid regurgitation as well as mild pulmonic regurgitation. Pleural effusion was also reported. Left ventricular ejection fraction was reported to be 40% to 45% with inferior posterior left ventricular hypokinesis. PAST MEDICAL HISTORY: The past medical history of the patient is significant for history of triple vessel coronary artery bypass graft surgery on 09/13/1998, history of intracoronary stent placement and vein bypass graft to the ramus intermedius branch on 06/09/2018, history of chronic hypertension for the last several years, history of hyperlipidemia for the last several years, history of diabetes mellitus for the last few years, history of chronic low back pain syndrome, history of aortic stenosis for the last few years with progressive worsening. PERSONAL HISTORY: The patient is nonsmoker, nonalcoholic. FAMILY HISTORY: Noncontributory. PHYSICAL EXAMINATION: Vital Signs: The pertinent physical findings show the patient's blood pressure is 139/70, pulse rate is 67 per minute, temperature is 97, the oximetry saturation is 96%. Heart: No cardiomegaly clinically. S1 and S2 is normal. Grade 2 to 3 x6 ejection systolic murmur best heard at the base with radiation over toward the carotids. No gallop is appreciated. Lung: Shows decreased breath sound at the bases. Abdomen: Soft. No organomegaly. Extremities: 1 to 2+ pedal edema is noted. Neurologic: Unremarkable. No focal localizing neuro deficit is appreciated. The patient's electrocardiogram showed normal sinus rhythm with possible anteroseptal myocardial infarction of undetermined age and nonspecific ST-T changes. LABORATORY DATA: The patient's lab work showed the patient's WBC count yesterday was 8,200, hemoglobin 15.4 with hematocrit of 46.1. Today, WBC count is 6,900, hemoglobin of 14.6 with a hematocrit of 43.8. The patient's BUN yesterday was 32, creatinine 1.6, potassium level of 5.2, and glucose of 208. The troponin level was 1.094, repeat troponin level was 1.12 and third set of troponin level showed 0.958. BNP level yesterday was 631. The cholesterol level is 140 with HDL cholesterol of 57, LDL cholesterol of 59, and triglycerides of 120. The chest x-ray done yesterday was reported to show chronic heart failure pattern and pleural effusion. CLINICAL IMPRESSION: 1. Congestive heart failure possibly secondary to valvular heart disease of significant aortic stenosis. 2. Arteriosclerotic heart disease with previous history of coronary artery bypass graft surgery as well as vein bypass graft stent placement with mildly elevated troponin level, possibly secondary to congestive heart failure, doubt acute myocardial infarction. 3. Chronic hypertension. 4. Hyperlipidemia. 5. Diabetes mellitus. 6. Mild azotemia. SUGGESTIONS: I agree with present plan amendment of the patient of continuing the patient on IV diuretic therapy, continuing the patient on lipid-lowering agents, continuing the patient on antiplatelet therapy. I am also starting the patient on carvedilol as well as ERNESTO inhibitors and spironolactone. Followup renal panel as well as BNP level will be checked. I will follow the patient with you. Thank you very much for letting me participate in the care of the patient. DT: 14:58:26 TT: 16:07:00 Ref: [id number] - TID: [id number]
[2024-06-26] MEDS: carVEDILOL 3.125 MG TABLET PO (17:23)
[2024-06-26] MEDS: BUMETANIDE INJ 0.25 MG/ML VIAL 4 ML 1 MG IVP (21:16)
[2024-06-27] VITALS (11 sets, daily range): BP systolic 131–151; BP diastolic 67–73; PULSE 50–85; RESP 14–96; TEMP 35.9–36.6; O2SAT 90–95; BMI 26.8
[2024-06-27] MEDS: HEPARIN SOD INJ 5000 UNIT/ML VIAL SC ×3 (05:47→21:12)
[2024-06-27 06:10] LABS: Basophils # (Auto) 0.1 Thou/mm3 (0.0-0.2); Basophils % (Auto) 1 % (0-2.5); Eosinophils # (Auto) 0.3 Thou/mm3 (0.0-0.5); Eosinophils % (Auto) 5 % (0-10); Hematocrit 45.7 % (41.0-53.0); Hemoglobin 15.2 g/dL (13.5-16.0); Immature Granulocytes % (Auto) 0 % (0-0); Immature Granulocytes Auto 0.01 Thou/mm3 (0.00-0.00); Lymphocytes # (Auto) 1.5 Thou/mm3 (1.0-4.8); Lymphocytes % (Auto) 22 % (10-50); Mean Corpuscular HGB Conc 33.3 g/dl (31.0-37.0); Mean Corpuscular Hemoglobin 32.5 pg (25.0-35.0); Mean Corpuscular Volume 98 fL (80-100); Monocytes # (Auto) 0.9 Thou/mm3 (0.0-0.8); Monocytes % (Auto) 12 % (0-12); Neutrophils # (Auto) 4.1 Thou/mm3 (1.8-7.7); Neutrophils % (Auto) 60 % (37-80); Nucleated Red Blood Cell % 0 /100 WBC (0); Platelet Count 159 Thou/mm3 (140-440); RDW Standard Deviation 50.7 fL (35.1-43.9); Red Blood Count 4.68 Miln/mm3 (4.50-5.90); White Blood Count 6.9 Thou/mm3 (3.8-10.6)
[2024-06-27 06:41] LABS: Anion Gap 8 (7-16); BUN/Creatinine Ratio 16 Ratio (12-20); Blood Urea Nitrogen 28 mg/dL (9-23); Calcium 9.1 mg/dL (8.3-10.6); Carbon Dioxide 29.8 mMol/L (20.0-31.0); Cardiac Risk Estimate 2.4 RATIO (4.0-6.7); Chloride 104 mMol/L (98-107); Cholesterol 131 mg/dL (132-200); Creatinine (Component) 1.8 mg/dL (0.6-1.3); Estimated Creatinine Clearance 29.6 mL/min (>60); Glucose 157 mg/dL (74-106); HDL Cholesterol 55 mg/dL (40-60); LDL Cholesterol,Calculated 61 mg/dL (0-130); Osmolality,Calculated 291 (275-295); Potassium 4.1 mMol/L (3.4-5.1); Sodium 142 mMol/L (136-145); Triglycerides 77 mg/dL (30-150); eGFR 37 See Note
[2024-06-27 06:49] LABS: B-Type Natriuretic Peptide 485 pg/mL (0-100)
[2024-06-27] MEDS: BUMETANIDE INJ 0.25 MG/ML VIAL 4 ML 1 MG IVP (08:56)
[2024-06-27] MEDS: ASPIRIN EC 81 MG TABEC PO (08:57)
[2024-06-27] MEDS: ATORVASTATIN CALCIUM 20 MG TABLET 40 MG PO (08:57)
[2024-06-27] MEDS: carVEDILOL 3.125 MG TABLET PO ×2 (08:58→16:54)
[2024-06-27] MEDS: SPIRONOLACTONE 25 MG TABLET 12.5 MG PO (09:36)
--- NOTE | 2024-06-27 13:11 | ESPR_ITS ---
<Statement entered by Nikolas Santamaria MD - 06/30/24 14:22> I reviewed above note and agree with findings and plans. I have also personally examined the patient with medicine team and went over assessment and plan with medical team including manager of international and resident physician. Documentation for date of: 06/27/24 Subjective Subjective Interval history: Patient seen today at the bedside fine awake, alert, oriented x 3. No overnight events reported. Vital signs at this time acceptable. Labs significant for worsening kidney function creatinine uptrending at this time, BMP downtrending. Patient has a -4 L fluid balance and clinically patient has no lower extremity edema, crackles on examination patient actually dry, at this time we will discontinue Bumex IV and will switch to Lasix 20 mg p.o. every morning. Spoke to Dr. Marie from cardiology recommended starting patient on carvedilol, spironolactone and losartan as part of goal-directed medical therapy, however losartan was held at this time due to patient's worsening kidney function. Cardiology also states patient will eventually need angiogram which can be set up as outpatient at this time. Exam Vital Signs Temp Pulse Resp BP Pulse Ox O2 Del Method O2 Flow Rate 97.8 F 51 L 19 132/68 H 95 Room Air 1 06/27/24 12:00 06/27/24 12:00 06/27/24 12:00 06/27/24 12:00 06/27/24 12:00 06/27/24 12:00 06/26/24 12:57 Narrative Exam Physical Exam GENERAL: NAD, AAOx3 HEENT: Moist mucosa. Eyes open, symmetrical, & clear CARDIO: Heart RRR, no obvious murmurs PULM: No noted coughing/dyspnea CTA B/L, no R/W/R GI: Abdomen soft, nondistended, no pain on palpation. BSx4 SKIN/MSK/EXT: No wounds/rashes/edema/amputations, no pain on palpation. Pedal pulses present B/L NEURO: AAOx3, no focal neuro deficits, able to move all 4 extremities Objective Labs 06/27/24 05:45 06/27/24 05:45 Labs: Laboratory Results - last 24 hr 06/26/24 06/27/24 13:04 05:45 WBC 6.9 RBC 4.68 Hgb 15.2 Hct 45.7 MCV 98 MCH 32.5 MCHC 33.3 RDW Std Deviation 50.7 H Plt Count 159 D Neut % (Auto) 60 Lymph % (Auto) 22 Taney % (Auto) 12 Eos % (Auto) 5 Baso % (Auto) 1 Neut # (Auto) 4.1 Lymph # (Auto) 1.5 Taney # (Auto) 0.9 H Eos # (Auto) 0.3 Baso # (Auto) 0.1 Immature Gran # (Auto) 0.01 H Absolute Nucleated RBC 0.00 Immature Gran % 0 Nucleated RBC % 0 APTT 26.1 Sodium 142 Potassium 4.1 Chloride 104 Carbon Dioxide 29.8 Anion Gap 8 BUN 28 H Creatinine 1.8 H Estim Creat Clear Calc 29.6 L eGFR 37 L BUN/Creatinine Ratio 16 Glucose 157 H Calculated Osmolality 291 Calcium 9.1 B-Natriuretic Peptide 485 H* Triglycerides 77 Cholesterol 131 L LDL Cholesterol, Calc 61 HDL Cholesterol 55 Cholesterol/HDL Ratio 2.4 L Quality Measures Quality Measures none Advance care planning discussed with:: patient Assessment & Plan Assessment Current Active Medications: Generic Name Dose Route Start Last Admin Trade Name Freq PRN Reason Stop Dose Admin Acetaminophen 650 mg 06/25/24 23:02 Acetaminophen 325 Mg Tablet PO 07/25/24 23:01 Q6H PRN Fever >101.5 Aspirin 81 mg 06/26/24 09:00 06/27/24 08:57 Aspirin Ec 81 Mg Tabec PO 07/26/24 08:59 81 mg QDAY ALMITA Administration Atorvastatin Calcium 40 mg 06/26/24 09:00 06/27/24 08:57 Atorvastatin Calcium 20 Mg Tablet PO 07/26/24 08:59 40 mg QDAY ALMITA Administration Carvedilol 3.125 mg 06/26/24 17:30 06/27/24 08:58 Carvedilol 3.125 Mg Tablet PO 07/26/24 17:29 3.125 mg BIDWM ALMITA Administration Furosemide 20 mg 06/28/24 09:00 Furosemide 20 Mg Tablet PO 07/28/24 08:59 QAM ALMITA Heparin Sodium (Porcine) 5,000 unit 06/26/24 06:00 06/27/24 05:47 Heparin Sod Inj 5000 Unit/Ml Vial SC 07/10/24 05:59 5,000 unit Q8HR ALMITA Administration Losartan Potassium 25 mg 06/27/24 09:00 Losartan Potassium 25 Mg Tablet PO 07/27/24 08:59 QDAY ALMITA Magnesium Hydroxide 30 ml 06/25/24 23:02 Milk Of Magnesia Susp 30 Ml Udc PO 07/25/24 23:01 QDAY PRN CONSTIPATION Protocol Ondansetron HCl 4 mg 06/25/24 23:02 Ondansetron Inj 2 Mg/Ml Inj 2 Ml IV 07/25/24 23:01 Q6H PRN NAUSEA OR VOMITING Protocol Spironolactone 12.5 mg 06/27/24 09:00 06/27/24 09:36 Spironolactone 25 Mg Tablet PO 07/27/24 08:59 12.5 mg DAILY ALMITA Administration Plan 83-year-old male with past medical history of hypertension, CAD s/p CABG in 1990, s/p stenting in 2018, prostate cancer s/p surgery presented to the hospital with chief complaints of shortness of breath since 4 weeks and admitted for acute hypoxic respiratory failure secondary to acute decompensated heart failure # Acute hypoxic respiratory failure # Acute decompensated heart failure # Ischemic cardiomyopathy # CAD s/p CABG and stent Patient had history of CABG in 1990 and stenting done in 2018, following Dr. Marie Presented with shortness of breath, limitation of daily activities since 4 weeks with no PND and orthopnea episodes Also endorsed lower extremity swelling since 2 years and not using any diuretics, which was recently worsening Also endorsed increased frequency of micturition during the night On examination, decreased breath sounds are noted on right basal areas with bilateral fine crepitus heard Vitals at the time of admission are blood pressure 167/74 mmHg, pulse rate 80/min, temperature 97.9 ?F, respiratory rate 20/min, SpO2 93% with 2 L oxygen Labs significant for potassium 5.2, chloride 112, BUN 32, creatinine 1.6 troponin 1.12, BNP 631 EKG showed normal sinus rhythm. Chest x-ray showed bilateral moderate vascular congestion with bilateral pleural effusion more on right Patient received a dose of 40 Mg IV Lasix in the ED Echo showed Moderate to severe calcific aortic stenosis mean gradient 29mmHg, vmax 3.6m/s. Peak Gradient 52 mm HG Normal LV size. with inferior and posterior wall kypokinesis LVEF 40-45%. Moderate RV dilatation. Estimated RVSP 54mmHg Biatrial enlargement. Mild MAC with mild to moderate mitral regurgitation. Mild to moderate TR. Pleural effusion present. MIld aortic and pulmonic valve regurgitation -fluid restriction(1500 mL) -Bumex was switched to Lasix 20 mg p.o. every morning -Strict input and output charting -Continue aspirin and atorvastatin -Started on carvedilol, spironolactone -Resume losartan once kidney function improves -Oxygen as needed and recommended to titrate based on saturations -Cardiology consulted, Dr. Marie, appreciate recommendations # NSTEMI type II Troponin at the time of admission is 1.094 >1.121 and down trended to 0.958 Repeat troponin levels were ordered and follow-up with the results Spoke to Dr. Muller from cardiology recommends starting patient on goal-directed medical therapy and will eventually need an angiogram which can be set up as an outpatient # Hyperkalemia-resolved Likely due to CKD Patient was given Lasix and albuterol inhalation -Recommended to follow levels with the morning labs #Chronic kidney disease, stage IIIb #Likely cardiorenal syndrome in the setting of heart failure Baseline creatinine in 09/2023 is 1.6 Creatinine at the time of admission is 1.6 Noted 2+ proteinuria on urine analysis Renal ultrasound Bilateral renal cortical thinning Moderate bilateral renal parenchymal scar formation -Urine microalbumin and creatinine ratio is ordered -Patient is using benazepril as home medication, held for now # Transaminitis, mild Likely in the setting of fluid overload -Will monitor liver functions if needed # History of hypertension Patient is using Benazepril and amlodipine at home -Started on carvedilol 3.125 twice daily -Losartan on hold at this time due to worsening kidney function # History of diabetes mellitus Patient is using glipizide 5 Mg at home -HbA1c in 02/2024 is within normal limits -Random blood glucose is 203 at the time of admission, likely elevated due to the uses of steroid prescribed by the PCP for shortness of breath -Repeat HbA1c is ordered. Plan of care discussed with my attending Dr. Hina Dockery MD PGY-1 Disposition: Med telemetry Fluids: None Feeding: Low-sodium with fluid restriction 1500 mL Thrombo prophylaxis: Heparin Gastric Ulcer prophylaxis: Not indicated CODE STATUS: DNR
--- NOTE | 2024-06-27 13:23 | PC.PT ---
PT eval only. Patient is I with transfers and ambulation without AD.
--- NOTE | 2024-06-27 16:26 | ESPR_ITS ---
RE: DORI HORVATH : 1940 DATE OF SERVICE: 06/27/2024 SUBJECTIVE: Mr. Horvath is feeling better today. The patient is breathing well. Denies any complaint of chest pain. Denies any complaints of skipped beats or palpitations. OBJECTIVE: Vital Signs: The patient's blood pressure today is 132/68, pulse rate is 51 and regular, respirations are 19, temperature is 97.8. Oximetry saturation is 95% on room air. Heart: The heart examination shows ejection systolic murmur of aortic stenosis. Lungs: The lungs are clear to percussion and auscultation. Extremities: No pedal edema is noted. LABORATORY DATA: Lab work today shows WBC count of 6,900, hemoglobin 15.2 with a hematocrit of 45.7. The patient's BUN this morning is 28, creatinine is 1.8, potassium level is 4.1. The patient's BNP level is better than on admission and is 485, though still elevated. The cholesterol level this morning was reported to be 131 with HDL cholesterol of 55, LDL cholesterol of 61, and triglycerides of 77. The fasting blood sugar is 157. PLAN: Plan to continue the patient on present medications and general supportive care. The patient has been getting out of bed and ambulating without any discomfort. Discharge planning will be as per the hospitalist and the patient will be seen for cardiac followup visit as an outpatient and further cardiac workup will be done as an outpatient. DT: 14:52:07 TT: 16:25:00 Ref: [id number] - TID: [id number]
[2024-06-28] VITALS (9 sets, daily range): BP systolic 136–142; BP diastolic 53–83; PULSE 51–66; RESP 13–95; TEMP 35.9–36.3; O2SAT 92–96; BMI 25.7
[2024-06-28] MEDS: HEPARIN SOD INJ 5000 UNIT/ML VIAL SC (05:19)
[2024-06-28 05:54] LABS: Basophils % (Auto) 0 % (0-2.5); Eosinophils # (Auto) 0.2 Thou/mm3 (0.0-0.5); Eosinophils % (Auto) 3 % (0-10); Hematocrit 45.3 % (41.0-53.0); Hemoglobin 15.2 g/dL (13.5-16.0); Immature Granulocytes % (Auto) 0 % (0-0); Immature Granulocytes Auto 0.01 Thou/mm3 (0.00-0.00); Lymphocytes # (Auto) 1.3 Thou/mm3 (1.0-4.8); Lymphocytes % (Auto) 19 % (10-50); Mean Corpuscular HGB Conc 33.6 g/dl (31.0-37.0); Mean Corpuscular Hemoglobin 32.6 pg (25.0-35.0); Mean Corpuscular Volume 97 fL (80-100); Monocytes # (Auto) 0.9 Thou/mm3 (0.0-0.8); Monocytes % (Auto) 12 % (0-12); Neutrophils # (Auto) 4.5 Thou/mm3 (1.8-7.7); Neutrophils % (Auto) 66 % (37-80); Nucleated Red Blood Cell % 0 /100 WBC (0); Platelet Count 160 Thou/mm3 (140-440); RDW Standard Deviation 49.8 fL (35.1-43.9); Red Blood Count 4.66 Miln/mm3 (4.50-5.90); White Blood Count 6.9 Thou/mm3 (3.8-10.6)
[2024-06-28 06:05] LABS: INR 1.1 (0.9-1.3); Partial Thromboplastin Time 29.5 Seconds (22.0-36.0); Prothrombin Time 11.7 Seconds (9.0-12.2)
[2024-06-28 06:14] LABS: Anion Gap 10 (7-16); BUN/Creatinine Ratio 20 Ratio (12-20); Blood Urea Nitrogen 28 mg/dL (9-23); Calcium 8.8 mg/dL (8.3-10.6); Carbon Dioxide 27.1 mMol/L (20.0-31.0); Chloride 104 mMol/L (98-107); Creatinine (Component) 1.4 mg/dL (0.6-1.3); Glucose 174 mg/dL (74-106); Osmolality,Calculated 290 (275-295); Potassium 3.7 mMol/L (3.4-5.1); Sodium 141 mMol/L (136-145); eGFR 50 See Note
--- NOTE | 2024-06-28 07:29 | PC.CC ---
Late Entry 06/27/24 Rounding note: Pending Dr. Marie to consult.
[2024-06-28] MEDS: SPIRONOLACTONE 25 MG TABLET 12.5 MG PO (08:56)
[2024-06-28] MEDS: ASPIRIN EC 81 MG TABEC PO (08:56)
[2024-06-28] MEDS: ATORVASTATIN CALCIUM 20 MG TABLET 40 MG PO (08:56)
[2024-06-28] MEDS: Furosemide 20 MG TABLET PO (08:56)
--- NOTE | 2024-06-28 12:41 | PC.CC ---
Rounding note: pt to D/c with follow up cardiology outpatient.
--- NOTE | 2024-06-30 15:06 | ESDS_ITS ---
Planned Discharge Date 06/30/24 DS: Providers Provider Date of admission: 06/25/24 23:03 Primary care physician: Kyle West MD Admitting Provider: Gilbert Garcia MD Attending Provider on Admission: Nikolas Santamaria MD Consults: 06/25/24 21:44 Consult to Cardiology Stat Comment: Consulting Provider: Alexander Dias 06/26/24 14:34 Consult to Cardiology Stat Comment: Consulting Provider: Dony Marie 06/27/24 08:31 Referral Physical Therapy Stat Comment: Physician Instructions: Attending Provider on DC: Susanna Villalobos MD Discharging Provider: Susanna Villalobos MD DS: Diagnosis Problem List Completed Was Problem List Reviewed/Reconciled?: Yes Hospital Course Hospital Course Hospital course: 83-year-old male with past medical history of hypertension, CAD s/p CABG in 1990, s/p stenting in 2017, CKD stage IIIb, prostate cancer s/p surgery presented to the hospital with chief complaints of shortness of breath since 4 weeks and admitted for acute hypoxic respiratory failure secondary to acute decompensated heart failure. Echocardiogram showed normal LV size but inferior and posterior wall hypokinesis, LVEF 40 to 45%. Initially started on Bumex and switch to Lasix. Continued on aspirin atorvastatin and carvedilol and spironolactone. We held losartan due to concurrent DANTE. Bridge Crew Member Dr. Marie was consulted and followed the patient. The patient is being discharged on furosemide 20 mg twice daily, spironolactone 12.5 mg daily, continue home medications amlodipine benazepril, albuterol inhaler, aspirin 81 mg, atorvastatin 40 mg, Breo Ellipta inhalers and glipizide. The patient is stable, ambulatory, afebrile and tolerating Per oral medications at the time of discharge. The patient understood and agreed to the treatment plan. Follow up with your flight engineer performance qualified Dr. Gregory in 5 days of discharge from hospital . Follow up with your Primary care physician in 3-5 days of discharge from hospital . In case of worsening symptoms please return to the emergency room . # Acute hypoxic respiratory failure # Acute decompensated heart failure # Ischemic cardiomyopathy # CAD s/p CABG and stent # NSTEMI type II # Hyperkalemia-resolved #Chronic kidney disease, stage IIIb #Likely cardiorenal syndrome in the setting of heart failure # Transaminitis, mild # History of hypertension # History of diabetes mellitus Patient evaluated and examined at the bedside, plan of care discussed with rest of the team including my attending physician. Griselda PGY2 Time Spent with Patient Time attestation: Total time spent providing and/or coordinating discharge services: Exam Vital Signs Temp Pulse Resp BP Pulse Ox O2 Del Method O2 Flow Rate 97.3 F 56 L 18 136/72 H 96 Nasal Cannula 1 06/28/24 12:35 06/28/24 13:06 06/28/24 13:06 06/28/24 12:35 06/28/24 12:35 06/28/24 12:35 06/28/24 12:35 Discharge Plan Plan Patient Disposition: HOME (Self Care) Care Plan Goals: Follow up with your flight engineer performance qualified Dr. Gregory in 5 days of discharge from hospital . Follow up with your Primary care physician in 3-5 days of discharge from hospital . In case of worsening symptoms please return to the emergency room . The patient is being discharged on furosemide 20 mg twice daily, spironolactone 12.5 mg daily, continue home medications amlodipine benazepril, albuterol inhaler, aspirin 81 mg, atorvastatin 40 mg, Breo Ellipta inhalers and glipizide. Prescriptions/Referrals Prescriptions/Med Rec: New spironolactone 25 mg Tablet 12.5 mg PO DAILY 30 Days Qty: 15 0RF furosemide 20 mg tablet 20 mg PO BID Qty: 60 0RF Continued atorvastatin 40 mg Tablet 40 mg PO QDAY aspirin [Aspir-81] 81 mg Tablet,Delayed Release (Dr/Ec) 81 mg PO QDAY glipizide 5 mg Tablet 5 mg PO QDAY albuterol 90 mcg/actuation Aerosol 2 mcg INHALATION PRN PRN (Reason: asthma) amlodipine-benazepril 10-40 mg capsule 10 - 40 cap PO DAILY Patient Comments: TAKE 1 CAPSULE DAILY fluticasone furoate-vilanterol [Breo Ellipta] 100-25 mcg/dose blister with device 2 inh INHALATION BID Patient Comments: INHALE 1 PUFF BY MOUTH DAILY Discontinued benazepril 10 mg Tablet 10 mg PO QDAY amoxicillin-pot clavulanate 875-125 mg tablet 1 tab PO BID Qty: 20 0RF ibuprofen 800 mg tablet 800 mg PO TID PRN (Reason: pain) Qty: 30 0RF prednisone 10 mg tablet 10 mg TID doxycycline hyclate 100 mg capsule 100 mg BID Patient Comments: TAKE 1 CAPSULE BY MOUTH TWICE A DAY FOR 7 DAYS Referrals: Kyle West MD [Primary Care Provider] - Patient/Caregiver Discharge Instructions Discharge Activity: activity as tolerated Other Discharge Activity Instructions:: FU in my office next week, Dony Marie Education Materials: Heart Failure Dc, Low Salt Diet Dc Print Language: Palauan Stand Alone Forms: Jacqueline Award Info., Patient Portal Info Letter Discharge Order Discharge Orders: Discharge (Routine); Ordered 06/28/24 Ordered By: Susanna Villalobos Quality Discharge Quality Measures VTE prophylaxis
== END 2024-06-28 13:00 | disposition home or self-care (01) | DRG 280 ==
LOC: SERX 21:58 → S2NX 06-26 06:09 → SERHOLD 06-26 06:09
PROVIDERS: Internal Medicine Cardiovascular Disease; Nurse Practitioner Primary Care; Student in an Organized Health Care Education/Training Program; Admitting Provider Internal Medicine; Emergency Provider Emergency Medicine; PCP Internal Medicine; Visit Provider Internal Medicine
DX: I13.0 Hypertensive heart and chronic kidney disease with heart failure and stage 1 through stage 4 chronic kidney disease, or unspecified chronic kidney disease (principal); I50.33 Acute on chronic diastolic (congestive) heart failure; I21.A1 Myocardial infarction type 2; J96.01 Acute respiratory failure with hypoxia; N18.32 Chronic kidney disease, stage 3b; E78.5 Hyperlipidemia, unspecified; I25.5 Ischemic cardiomyopathy; E11.22 Type 2 diabetes mellitus with diabetic chronic kidney disease; R74.01 Elevation of levels of liver transaminase levels; E87.5 Hyperkalemia; I25.10 Atherosclerotic heart disease of native coronary artery without angina pectoris; I08.3 Combined rheumatic disorders of mitral, aortic and tricuspid valves; I37.1 Nonrheumatic pulmonary valve insufficiency; Z66 Do not resuscitate; Z85.46 Personal history of malignant neoplasm of prostate; Z95.1 Presence of aortocoronary bypass graft; Z79.84 Long term (current) use of oral hypoglycemic drugs; Z79.82 Long term (current) use of aspirin; Z79.51 Long term (current) use of inhaled steroids; Z79.899 Other long term (current) drug therapy
CPT/HCPCS: 36415; 71046; 76770; 80048; 80053; 80061; 81001; 82043; 82570; 83036; 83690; 83735; 83880; 84443; 84484; 85025; 85610; 85730; 93005; 93306; 94640; 96374; 99285; A9270; J1643; J1940; J3490

== ENCOUNTER → 2024-07-08 | Outpatient (CLI) | payer MEDICARE, OTHER, SELFPAY ==
[2024-07-08 17:02] LABS: Glucose Estimated Average 171 mg/dL (80-131); Hemoglobin A1C 7.6 % Hgb (4.8-6.0)
[2024-07-08 17:06] LABS: B-Type Natriuretic Peptide 338 pg/mL (0-100)
[2024-07-08 17:07] LABS: Anion Gap 11 (7-16); BUN/Creatinine Ratio 22 Ratio (12-20); Blood Urea Nitrogen 38 mg/dL (9-23); Calcium 9.9 mg/dL (8.3-10.6); Carbon Dioxide 23.2 mMol/L (20.0-31.0); Chloride 105 mMol/L (98-107); Creatinine (Component) 1.7 mg/dL (0.6-1.3); Glucose 170 mg/dL (74-106); Osmolality,Calculated 290 (275-295); Potassium 4.8 mMol/L (3.4-5.1); Sodium 139 mMol/L (136-145); eGFR 40 See Note
== END | disposition home or self-care (01) ==
LOC: COPL 15:37
PROVIDERS: PCP Internal Medicine; Referring Provider Internal Medicine Cardiovascular Disease; Visit Provider Internal Medicine Cardiovascular Disease
DX: E11.9 Type 2 diabetes mellitus without complications (principal); I11.0 Hypertensive heart disease with heart failure; I50.9 Heart failure, unspecified; E78.5 Hyperlipidemia, unspecified
CPT/HCPCS: 36415; 80048; 83036; 83880

== ENCOUNTER → 2024-07-29 | Outpatient (CLI) | payer MEDICARE, OTHER, SELFPAY ==
[2024-07-29 09:37] LABS: B-Type Natriuretic Peptide 227 pg/mL (0-100)
[2024-07-29 10:04] LABS: Anion Gap 7 (7-16); BUN/Creatinine Ratio 30 Ratio (12-20); Blood Urea Nitrogen 60 mg/dL (9-23); Calcium 9.4 mg/dL (8.3-10.6); Carbon Dioxide 23.5 mMol/L (20.0-31.0); Chloride 108 mMol/L (98-107); Glucose 110 mg/dL (74-106); Osmolality,Calculated 293 (275-295); Sodium 138 mMol/L (136-145); eGFR 33 See Note
[2024-07-29 10:08] LABS: Potassium 6.1 mMol/L (3.4-5.1)
== END | disposition home or self-care (01) ==
PROVIDERS: PCP Internal Medicine Cardiovascular Disease; Referring Provider Internal Medicine Cardiovascular Disease; Visit Provider Internal Medicine Cardiovascular Disease
DX: I11.0 Hypertensive heart disease with heart failure (principal); I50.9 Heart failure, unspecified; E78.5 Hyperlipidemia, unspecified
CPT/HCPCS: 36415; 80048; 83880

== ENCOUNTER 2024-08-04 11:20 | Inpatient (IN) | payer MEDICARE, OTHER, SELFPAY ==
[2024-08-04 11:34] VITALS: BP 149/64; PULSE 64; RESP 18; TEMP 36.5; O2SAT 98; BMI 25.9
--- NOTE | 2024-08-04 11:38 | EKG_ITS ---
[facility] Test Date: 2024-08-04 Pat Name: DORI HORVATH Department: Room: - Gender: Male Hardware Technician: : 1940 Requested By: Myrna Perrin Order Number: [id number] Reading MD: Myrna Perrin Measurements Intervals [place] Rate: 58 P: 51 [place]: 208 QRS: -50 QRSD: 130 T: 48 QT: 463 QTc: 456 Interpretive Statements SINUS BRADYCARDIA MARKED LEFT AXIS DEVIATION [QRS AXIS < -30] POSSIBLE RIGHT VENTRICULAR CONDUCTION DELAY [RSR (QR) IN V1/V2] SEPTAL MYOCARDIAL INFARCTION , PROBABLY OLD [40+ ms Q WAVE IN V1/V2] Compared to ECG 06/25/2024 15:04:20 Left-axis deviation now present Sinus rhythm no longer present Left anterior fascicular block no longer present Myocardial infarct finding still present /store/S0/[id number]
--- NOTE | 2024-08-04 11:43 | EDNOTE_ITS ---
<Statement entered by Charla Fierro MD - 08/04/24 14:04> As co-signing physician, I was present and available for consult prn. I concur with the plan and care as documented by the midlevel provider. ED Recheck Abnl Lab Rx-RME/HPI General Chief Complaint: Recheck/Abnormal Lab/Rx Stated Complaint: ABNORMAL LAB ELEVATED BUN, CREAT, K+; DR MULLER SENT Time Seen by Provider: 08/04/24 11:38 Arrival date/time: 08/04/24 11:20 83 year old male with past medical history of triple bypass, stent, HTN, HDL, CHF present to emergency room with c/o of abnormal labs done today at his delivery tech Dr. Muller. pt denies any current symptoms his potassium today was 7.4. SEVERITY: Symptoms are described as being severe with limitations on activities of daily living CONTEXT: The patient is unable to identify any inciting events. DURATION/TIMING: The symptoms started approximately 1 day ASSOCIATED SYMPTOMS: The patient is unable to identify any other associated symptoms. MODIFYING FACTORS: The patient is unable to identify any alleviating or aggravating symptoms. PERTINENT ROS: no fevers, no cough, no pleuritic pain, no ripping or tearing sensations, denies any lower extremity edema and no unilateral swelling, no chest pain/shortness of breath no nausea,vomiting, diarrhea, no dizzi ness/headache no rash no loc/syncope episode no abd/back pain, tingling/numbness, alter mental status, REVIEW OF SYSTEMS: See History of Present Illness - with the exception of those mentioned in the history of present illness, all other systems reviewed and reported as negative Dr. Marie Purse Maker PCP: Hortencia GENERAL: In general the patient is awake, interactive, in an emergency department [facility]. HEAD/EYES/EARS/NOSE/THROAT: normo-cephalic, atraumatic, mucus membranes are moist, anicteric, palpebral conjunctiva is pink, trachea is midline. CARDIOVASCULAR: regular rate and regular rhythm, no murmurs, heart sounds are not distant, strong pulses in all four extremities that are equal and symmetric bilateral upper and lower extremities, normal capillary refill. CHEST/PULMONARY: normal chest rise and fall, good air movement, clear to auscultation bilaterally, normal inspiratory to expiratory ratios without evidence of respiratory distress. NECK: No midline/Paraspinal tenderness, no step off ROM/Strenght intact No Kernig and bruzinski sign. No trauma ABDOMEN: soft, not tender, no masses appreciated BACK: normal range of motion without pain. NEUROLOGICAL: cranio-facial features are symmetric, moves all four extremities equally without obvious limitations or weakness. EXTREMITY: no tenderness to palpation over the long bones or large joints of the bilateral upper and lower extremities, no joint swelling, no joint erythema, no signs of trauma, no unilateral leg swelling and no peripheral edema. SKIN: warm, dry, well-perfused, no jaundice, no rash, no telangiectasias or petechia. PSYCH: calm, cooperative, no evidence of psychosis or agitation Related Data Home Medications ?Medication ?Instructions ?Recorded ?Confirmed aspirin 81 mg tablet,delayed 81 mg PO QDAY 05/12/18 release (Aspir-) atorvastatin 40 mg tablet 40 mg PO QDAY 05/12/1806/26 glipizide 5 mg tablet 5 mg PO QDAY 05/12/18 albuterol 90 mcg/actuation aerosol 2 mcg inhalation KS N PRN asthma 06/25/24 06/26/24 inhaler amlodipine 10 mg-benazepril 40 mg 10 - 40 cap PO DAILY 06/25/24 06/26/24 capsule fluticasone furoate 100 2 inh inhalation BID 5 06/26/24 mcg-vilanterol 25 mcg/dose inhalation powder (Breo Ellipta) Previous Rx's ?Medication ?Instructions ?Recorded furosemide 20 mg tablet 20 mg PO BID #60 tabs Allergies Allergy/AdvReac Type Severity Reaction Status Date / Time No Known Allergies Allergy Verified 08/04/24 11:23 Course Quality Measures none Orders Category Date Time Status Bedside Blood Glucose Q2HX3 Care 08/04/24 11:38 Active EKG (ED ONLY) *Do not use* NOW Care 08/04/24 11:38 Active Consult to Nephrology Stat Cons 08/04/24 12:26 Ordered EKG (ED Only) Stat Exams 08/04/24 11:38 Draft CBC Stat Lab 08/04/24 11:56 Ordered CMP [Comprehensive Metabolic Panel] Stat Lab 08/04/24 11:56 Ordered INR [Prothrombin Time with INR] Stat Lab 08/04/24 11:56 Ordered Mag [Magnesium] Stat Lab 08/04/24 11:56 Ordered PTT [Partial Thromboplastin Time] Stat Lab 08/04/24 11:56 Ordered Calcium Gluconate 10% Inj Med 08/04/24 11:38 Discontinued 1 gm IV X1 ONE Dextrose 50% Syr [D50w Syringe Abboject] Med 08/04/24 11:38 Discontinued 50 ml IV X1 ONE Insulin Regular Med 08/04/24 11:38 Discontinued 10 unit IV X1 ONE Sod Polystyrene Sulfon Susp [Kayexalate Susp] Med 08/04/24 11:38 Discontinued 30 gm [place] X1 ONE Vital Signs Vital signs: Vital Signs Temperature 97.7 F 08/04/24 11:34 Pulse Rate 64 08/04/24 11:34 Respiratory Rate 18 08/04/24 11:34 Blood Pressure 149/64 H 08/04/24 11:34 Pulse Oximetry (%) 98 08/04/24 11:34 Oxygen Delivery Method Room Air 08/04/24 11:34 Procedures -ED EKG Interpretation #1: Date of EK08/04/24 Rate: 56 Interpretation: Reviewed by me EKG Impression: No acute ST-T changes, No ischemic changes and Normal QRS Additional EKG comment: sinus bradycardia Recheck / Abnormal Lab / Rx MDM Narrative MDM Narrative:: DISPOSITION: Emergency Department nursing documentation was reviewed including triage complaint, associated symptoms, administration of medications, response to therapy and vital signs. Given the history, physical exam, and review of laboratory and imaging studies the patient is determined to be unsafe for discharge and is being moved into the hospital for further diagnostic tests, treatments, stabilization, and monitored response to therapy. I communicated the history, physical exam, pertinent laboratory and imaging studies to the inpatient physician. The inpatient physician has access to electronic copies of all emergency department laboratory testing and imaging studies as well as medications ordered and administered. Patient data External records reviewed:: [facility] previous records Clinical information provided by:: patient and spouse Social determinants that could affect healthcare access:: none Patient has the following chronic illnesses:: bypass, htn, hdl, renal failure How is presenting disease/condition affected by chronic disease/condition?: exacerbated by Evaluation data The following diagnostics were reviewed and interpreted by me:: lab results, radiology exam(s) and EKG tracing(s) Lab and/or radiology exams considered but not ordered:: none Interpretation Summary: review of US renal 06/2024: Impression: Bilateral renal cortical thinning Moderate bilateral renal parenchymal scar formation No hydronephrosis Cbc: wnl CMP + 7.4 Medications / Prescriptions Medications or Prescriptions considered but not ordered:: none Medication administrations:: Medication Administration History Discontinued Medications Calcium Gluconate (Calcium Gluconate 10% Inj 1 Gm/10 Ml Vial) 1 gm IV X1 ONE Stop: 08/04/24 11:39 Dextrose (Dextrose 50%-Water Inj 50 Ml Syringe) 50 ml IV X1 ONE Stop: 08/04/24 11:39 Insulin Human Regular (Insulin Hum Regular 1 Unit/0.01 Ml (Per Unit)) 10 unit IV X1 ONE Stop: 08/04/24 11:39 Sodium Polystyrene Sulfonate (Sod Polystyrene Sulfon Susp 15 Gm/60 Ml Btl) 30 gm [place] X1 ONE Stop: 08/04/24 11:39 as state above Consultations Consultation(s) initiated? (list below): Yes Consultation #1 (Physician, Specialty, Details): Dr. Gardiner for consult will come in for consult possible diaylsis Consultation #2 (Physician, Specialty, Details): Dr. Zuniga will accept patient for admission Diagnosis Recheck Differential Diagnosis: other (hyperkalemia, renal failure, anemia, ) Most likely diagnosis given after review of the tests above:: hyperkalemia, kidney failure Admission Indicated Admission indicated?: indicated Admission Request Was there a request for admission?: Yes Admission Attestation Admission request attestation: Discussed case with [Dr. Zuniga ] from Hospitalist service regarding admission. Discussed patients ED course, exam findings, labs, and radiology results. The Hospitalist [agrees] to accept the patient for admission. Disposition Plan Disposition Plan: Admit Discharge Plan Plan Patient Disposition: Admit Acute Care w/in Hospital Prescriptions/Referrals Prescriptions/Med Rec: No Action atorvastatin 40 mg Tablet 40 mg PO QDAY aspirin [Aspir-81] 81 mg Tablet,Delayed Release (Dr/Ec) 81 mg PO QDAY glipizide 5 mg Tablet 5 mg PO QDAY albuterol 90 mcg/actuation Aerosol 2 mcg INHALATION PRN PRN (Reason: asthma) amlodipine-benazepril 10-40 mg capsule 10 - 40 cap PO DAILY Patient Comments: TAKE 1 CAPSULE DAILY fluticasone furoate-vilanterol [Breo Ellipta] 100-25 mcg/dose blister with device 2 inh INHALATION BID Patient Comments: INHALE 1 PUFF BY MOUTH DAILY furosemide 20 mg tablet 20 mg PO BID Qty: 60 0RF Problem List Clinical Impression: Acute hyperkalemia, Acute kidney failure Patient/Caregiver Discharge Instructions Print Language: Maltese Stand Alone Forms: Jacqueline Award Info., Patient Portal Info Letter
[2024-08-04 12:05] VITALS: BP 145/60; PULSE 56; RESP 18; TEMP 36.5; O2SAT 98
[2024-08-04 12:32] LABS: Basophils # (Auto) 0.1 Thou/mm3 (0.0-0.2); Basophils % (Auto) 1 % (0-2.5); Eosinophils # (Auto) 0.1 Thou/mm3 (0.0-0.5); Eosinophils % (Auto) 2 % (0-10); Hemoglobin 14.8 g/dL (13.5-16.0); Immature Granulocytes % (Auto) 0 % (0-0); Immature Granulocytes Auto 0.01 Thou/mm3 (0.00-0.00); Lymphocytes % (Auto) 14 % (10-50); Mean Corpuscular HGB Conc 33.6 g/dl (31.0-37.0); Mean Corpuscular Volume 95 fL (80-100); Monocytes # (Auto) 0.5 Thou/mm3 (0.0-0.8); Monocytes % (Auto) 7 % (0-12); Neutrophils # (Auto) 5.6 Thou/mm3 (1.8-7.7); Neutrophils % (Auto) 77 % (37-80); Nucleated Red Blood Cell % 0 /100 WBC (0); Platelet Count 184 Thou/mm3 (140-440); RDW Standard Deviation 45.9 fL (35.1-43.9); Red Blood Count 4.62 Miln/mm3 (4.50-5.90); White Blood Count 7.2 Thou/mm3 (3.8-10.6)
[2024-08-04 12:50] LABS: Alanine Aminotransferase 27 U/L (10-49); Albumin, Serum 4.8 gm/dL (3.4-4.8); Alkaline Phosphatase 100 U/L (46-116); Anion Gap 10 (7-16); Aspartate Amino Transferase 29 U/L (0-34); BUN/Creatinine Ratio 30 Ratio (12-20); Bilirubin,Total 0.7 mg/dL (0.3-1.2); Blood Urea Nitrogen 63 mg/dL (9-23); Calcium 9.9 mg/dL (8.3-10.6); Calcium (Corrected) 9.9 mg/dL (8.5-10.1); Carbon Dioxide 20.4 mMol/L (20.0-31.0); Chloride 107 mMol/L (98-107); Creatinine (Component) 2.1 mg/dL (0.6-1.3); Estimated Creatinine Clearance 25.4 mL/min (>60); Globulin 2.4 gm/dL (2.3-3.5); Glucose 353 mg/dL (74-106); Magnesium 2.2 mg/dL (1.6-2.6); Osmolality,Calculated 305 (275-295); Potassium 5.9 mMol/L (3.4-5.1); Sodium 137 mMol/L (136-145); Total Protein 7.2 gm/dL (5.7-8.2); eGFR 31 See Note
[2024-08-04 12:51] LABS: Partial Thromboplastin Time 26.1 Seconds (22.0-36.0); Prothrombin Time 10.5 Seconds (9.0-12.2)
[2024-08-04] MEDS: DEXTROSE 50%-WATER INJ 50 ML SYRINGE IV (13:11)
[2024-08-04] MEDS: CALCIUM GLUCONATE 10% INJ 1 GM/10 ML VIAL IV (13:11)
[2024-08-04] MEDS: SOD POLYSTYRENE SULFON SUSP 15 GM/60 ML BTL 30 GM PR (13:11)
[2024-08-04] MEDS: INSULIN HUM REGULAR 1 UNIT/0.01 ML (PER UNIT) 10 UNIT IV (13:11)
--- NOTE | 2024-08-04 14:52 | PD.RESHP ---
Documentation for date of: 08/04/24 HPI History of Present Illness History of present illness: Bradford is a 83 y/o male with PMHx of hypertension, CAD s/p triple vessel CABG in 1990, s/p PCI (unsure of number of stents) in 2017, prostate cancer s/p TURP, aortic stenosis and non-insulin dependent DM who comes for an evaluation of hyperkalemia with no associated chest pain, palpitations or shortness of breath. Patient reports that he was sent from his director of software development office, Dr. Marie, in which she had lab work done and had showed a potassium level of 7.4. He reports that his potassium level has never been this high. He does report that he had started an antibiotic recently, amoxicillin reports no other changes to his medicines. He denies having any history of kidney disease or being on dialysis. He denies any recent travel, or any changes to eating habits. He also says that he denies any other changes to his medicines and only takes vitamin D3 and aspirin [id number]. He also denies any headache, nausea, vomiting, confusion, or swelling in the legs. He does say that he sees his director of software development routinely, Dr. Marie and was supposed to get a angiogram recently. Patient reports that he was taking spironolactone and stopped it about less than 2 weeks ago after he was told to stop taking it after labs. He also endorses taking Entresto and his last dose was yesterday. No other complaints at this time ED Course: Patient arrived with a blood pressure of 149/64, afebrile and with otherwise unremarkable vitals. Patient was worked up and was found to have a white count of 7.2, hemoglobin of 14.8, sodium of 137, potassium 7.4, bicarb of 23, BUN/creatinine of 69 2.0, glucose of 116, magnesium 2.2. EKG was done and showed sinus bradycardia and possible peaked T waves in V3. Patient was given calcium gluconate, insulin 10 units with D5, and 30 gm of Kayexalate. Medicine and nephrology were consulted and patient was admitted to floors Past medical history: As above Surgeries history: Angioplasty in 1988 at [facility], triple heart bypass 1990 [facility], TURP in 2001, back surgery 2013 at [facility], another back surgery in September 2017 at [facility], angioplasty with stents in April 2018, Allergies: No known allergies Meds: Family history: Denies history of heart disease, stroke, diabetes Social history: Born and raised in [place], did service in [place] in the [employer] for 36 years, with has 2 kids. Works in the fire department as well, retired in [place]. No smoking history, has never been a heavy drinker and denies IV or oral drug use. Is able to walk and do adult daily living activities, has 4 horses. Eats mainly all of his meals at home. Review of Systems Review of Systems Narrative Review of Systems: 12 point ROS reviewed and was otherwise negative unless directly stated in the HPI Exam Vital Signs Temp Pulse Resp BP Pulse Ox O2 Del Method 97.7 F 56 L 18 145/60 H 98 Room Air 08/04/24 12:05 08/04/24 12:05 08/04/24 12:05 08/04/24 12:05 08/04/24 12:05 08/04/24 12:05 Narrative Exam General: AAOx3, NAD, pleasant, wearing glasses, looks younger than 83 HEENT: Moist mucous membranes, conjunctiva clear, EOMI, PERRLA, Cardiovascular: S1, S2, radial pulses +2 bilat, RRR, possible murmur heard in R US Pulmonary: CTAB bilat no cough, no wheezing GI: No tenderness to light or deep palpitation, no guarding, rigidity, rebound tenderness or distension Extremities: No presence of trace or pitting edema in lower extremities bilaterally, dorsalis pedis pulses +2 bilaterally Neuro: AAOx3, no focal motor or sensory deficits in the UE or LE bilat Psych: Good judgement, thought and behavior. Cooperative Results: Labs 08/05/24 05:34 08/05/24 05:34 Labs: Short CBC 08/04/24 Range/Units 12:05 WBC 7.2 (3.8-10.6) Thou/mm3 Hgb 14.8 (13.5-16.0) g/dL Hct 44.0 (41.0-53.0) % Plt Count 184 (140-440) Thou/mm3 BMP 08/04/24 12:05 Sodium 137 Potassium 5.9 H D Chloride 107 Carbon Dioxide 20.4 BUN 63 H Creatinine 2.1 H Glucose 353 H D Calcium 9.9 Liver Function 08/04/24 Range/Units 12:05 Total Bilirubin 0.7 (0.3-1.2) mg/dL AST 29 (0-34) U/L ALT 27 (10-49) U/L Alkaline Phosphatase 100 (46-116) U/L Albumin 4.8 (3.4-4.8) gm/dL Quality Measures Quality Measures none Advance care planning discussed with:: patient Medications Home Medications and Allergies Home Medications ?Medication ?Instructions ?Recorded ?Confirmed ?Type aspirin 81 mg tablet,delayed 81 mg PO QDAY 05/12/18 08/04/24 History release (Aspir-) atorvastatin 40 mg tablet 40 mg PO QDAY 05/12/18 08/04/24 History glipizide 5 mg tablet 5 mg PO QDAY 05/12/18 08/04/24 History albuterol 90 mcg/actuation aerosol 2 mcg inhalation PRN PRN asthma 06/25/24 08/04/24 History inhaler amlodipine 10 mg-benazepril 40 mg 10 - 40 cap PO DAILY 06/25/24 08/04/24 History capsule fluticasone furoate 100 2 inh inhalation BID 06/25/24 08/04/24 History mcg-vilanterol 25 mcg/dose inhalation powder (Breo Ellipta) sacubitril 24 mg-valsartan 26 mg 1 tab PO BID 08/04/24 08/04/24 History tablet (Entresto) Allergies Allergy/AdvReac Type Severity Reaction Status Date / Time No Known Allergies Allergy Verified 08/04/24 11:23 Visit Medications Acetaminophen (Acetaminophen 325 Mg Tablet) 1,000 mg PO Q6H PRN PRN Reason: Fever >101.5 or pain 1-3 Stop: 09/03/24 14:27 Albuterol (Albuterol Rt 2.5 Mg/0.5 Ml Nebu) 2.5 mg INH Q2HR PRN PRN Reason: SHORTNESS OF BREATH OR WHEEZE Stop: 09/03/24 14:27 Ondansetron HCl (Ondansetron Inj 2 Mg/Ml Inj 2 Ml) 4 mg IV Q6H PRN; Protocol PRN Reason: NAUSEA OR VOMITING Stop: 09/03/24 14:32 Fluticasone/Salmeterol (Fluticasone/Salmeterol 100/50 14 Dose Inh) 1 puff INH BIDRT ALMITA Stop: 09/03/24 18:59 Sodium Chloride (Sodium Chloride Rt [place] 0.9% 3 Ml Nebu) 3 ml INH PRN PRN PRN Reason: SOLN Stop: 09/03/24 14:27 Discontinued Medications Calcium Gluconate (Calcium Gluconate 10% Inj 1 Gm/10 Ml Vial) 1 gm IV X1 ONE Stop: 08/04/24 11:39 Last Admin: 08/04/24 13:11 Dose: 1 gm Dextrose (Dextrose 50%-Water Inj 50 Ml Syringe) 50 ml IV X1 ONE Stop: 08/04/24 11:39 Last Admin: 08/04/24 13:11 Dose: 50 ml Insulin Human Regular (Insulin Hum Regular 1 Unit/0.01 Ml (Per Unit)) 10 unit IV X1 ONE Stop: 08/04/24 11:39 Last Admin: 08/04/24 13:11 Dose: 10 unit Sodium Polystyrene Sulfonate (Sod Polystyrene Sulfon Susp 15 Gm/60 Ml Btl) 30 gm [place] X1 ONE Stop: 08/04/24 11:39 Last Admin: 08/04/24 13:11 Dose: 30 gm Assessment & Plan Plan Assessment Bradford is a 83 y/o male with PMHx of HFrEF with EF 40 to 45%, hypertension, CAD s/p triple vessel CABG in 1990, s/p PCI (unsure of number of stents) in 2017, prostate cancer s/p TURP, severe aortic stenosis and non-insulin dependent DM, CKD who is currently admitted for severe hyperkalemia #Severe hyperkalemia #DANTE #History of CKD CKD appears to be stage IIIb Creatinine jumped to 2.1 from was seems to baseline 1.7 Initial potassium was 7.2, after medicines were dropped down to 5.9 Patient could have had hyperkalemia due to spironolactone and Entresto use Plan: ? Nephrology on consult, appreciate recs ? Urine lytes and Cr ? Avoid nephrotoxic agents ? Renally dose medicines ? Follow-up renal panel 7pm #History of HFrEF with EF 40 to 45% with mild mitral and tricuspid regurgitation and wall motion abnormalities #History of hypertension #History of coronary artery disease status post triple-vessel bypass and PCI #History of severe aortic stenosis Patient appears to be on some GDMT therapy including Entresto spironolactone Echo done in June 2024 showed Showed moderate to severe aortic stenosis with mild aortic regurgitation. Mild to moderate mitral regurgitation was also reported. The patient also was reported to have mild to moderate tricuspid regurgitation as well as mild pulmonic regurgitation. Pleural effusion was also reported. Left ventricular ejection fraction was reported to be 40% to 45% with inferior posterior left ventricular hypokinesis. Plan: ? Will hold on resuming home blood pressure medicines ? Continuing aspirin 81 mg daily 85 #History of ayr-[id number] diabetes A1c in June was 7.6 Plan: ? SSI ? Hypoglycemic protocol and check ? Carb diet ? Blood glucose checks with meals #History of prostate cancer status post TURP Stable #Health Maintenance Disposition: Med telemetry DVT prophylaxis: Heparin q12h GI prophylaxis: None indicated at this time Diet: Carb consistent CODE STATUS: Full Patient seen and care discussed with my senior resident, Dr. Kauffman , and my attending physician, Dr. Luz Marina Steve, PGY-1 Attending Provider Attestation/Addendum I reviewed labs, imaging, EKG, home medications and prior available records. Face to face evaluation was performed by me. I have personally examined the patient and discussed assessment and plan with the IM team. I reviewed the resident note and agree with the plan with exceptions as below. CAD status post CABG CKD stage IIIb Chronic HFrEF EF 40 to 45% Essential hypertension Hyperkalemia Hold home Entresto Received dextrose, insulin, and Kayexalate in the ED. Monitor BMP closely Monitor kidney function. Avoid nephrotoxins. Renally dosed Consulted nephrology Continue home aspirin
[2024-08-04 14:58] VITALS: BP 128/62; PULSE 58; RESP 15; TEMP 36.5; O2SAT 97
[2024-08-04] MEDS: HEPARIN SOD INJ 5000 UNIT/ML VIAL SC (16:26)
[2024-08-04 18:13] LABS: Chloride,Urine Random 61.9 mMol/L (55.0-125.0); Creatinine,Random Urine 68 mg/dL (30-125); Potassium,Urine Random 37 mMol/L (12-62); Sodium,Urine Random 70.2 mMol/L (20.0-110.0)
[2024-08-04 18:23] VITALS: BP 133/59; PULSE 72; RESP 18; TEMP 36.6; O2SAT 100
[2024-08-04 19:09] VITALS: PULSE 76; RESP 18; O2SAT 97
[2024-08-04 20:07] LABS: Anion Gap 6 (7-16); BUN/Creatinine Ratio 34 Ratio (12-20); Blood Urea Nitrogen 61 mg/dL (9-23); Calcium 9.5 mg/dL (8.3-10.6); Carbon Dioxide 21.7 mMol/L (20.0-31.0); Chloride 111 mMol/L (98-107); Creatinine (Component) 1.8 mg/dL (0.6-1.3); Estimated Creatinine Clearance 29.6 mL/min (>60); Glucose 163 mg/dL (74-106); Osmolality,Calculated 298 (275-295); Potassium 5.2 mMol/L (3.4-5.1); Sodium 139 mMol/L (136-145); eGFR 37 See Note
[2024-08-04 20:47] VITALS: BP 138/71; PULSE 61; RESP 12; TEMP 37; O2SAT 99
[2024-08-05] VITALS: BP 90/65; PULSE 60; RESP 14; TEMP 36.1; O2SAT 98
[2024-08-05] MEDS: SOD POLYSTYRENE SULFON SUSP 15 GM/60 ML BTL 30 GM PO (01:00)
[2024-08-05] MEDS: HEPARIN SOD INJ 5000 UNIT/ML VIAL SC ×2 (02:03→14:38)
[2024-08-05 04:00] VITALS: BP 110/61; PULSE 68; RESP 17; TEMP 36.1; O2SAT 97
[2024-08-05 06:06] LABS: Basophils % (Auto) 1 % (0-2.5); Eosinophils # (Auto) 0.3 Thou/mm3 (0.0-0.5); Eosinophils % (Auto) 5 % (0-10); Hematocrit 41.2 % (41.0-53.0); Hemoglobin 13.7 g/dL (13.5-16.0); Immature Granulocytes % (Auto) 0 % (0-0); Lymphocytes % (Auto) 19 % (10-50); Mean Corpuscular HGB Conc 33.3 g/dl (31.0-37.0); Mean Corpuscular Volume 96 fL (80-100); Monocytes # (Auto) 0.7 Thou/mm3 (0.0-0.8); Monocytes % (Auto) 13 % (0-12); Neutrophils # (Auto) 3.2 Thou/mm3 (1.8-7.7); Neutrophils % (Auto) 62 % (37-80); Nucleated Red Blood Cell % 0 /100 WBC (0); Platelet Count 167 Thou/mm3 (140-440); RDW Standard Deviation 46.6 fL (35.1-43.9); Red Blood Count 4.28 Miln/mm3 (4.50-5.90); White Blood Count 5.1 Thou/mm3 (3.8-10.6)
[2024-08-05 06:19] LABS: Partial Thromboplastin Time 25.2 Seconds (22.0-36.0); Prothrombin Time 10.7 Seconds (9.0-12.2)
[2024-08-05 06:28] LABS: Albumin, Serum 4.1 gm/dL (3.4-4.8); Anion Gap 6 (7-16); BUN/Creatinine Ratio 29 Ratio (12-20); Blood Urea Nitrogen 53 mg/dL (9-23); Calcium 9.7 mg/dL (8.3-10.6); Calcium (Corrected) 9.7 mg/dL (8.5-10.1); Chloride 113 mMol/L (98-107); Creatinine (Component) 1.8 mg/dL (0.6-1.3); Estimated Creatinine Clearance 29.6 mL/min (>60); Glucose 152 mg/dL (74-106); Osmolality,Calculated 300 (275-295); Phosphorous 4.8 mg/dL (2.4-5.1); Potassium 5.6 mMol/L (3.4-5.1); Sodium 142 mMol/L (136-145); eGFR 37 See Note
[2024-08-05 08:00] VITALS: BP 111/55; PULSE 55; PULSE 87; RESP 16; TEMP 36.3; O2SAT 98
--- NOTE | 2024-08-05 08:47 | PD.RESCONSUL ---
HPI Data of Consult Consult date: 08/05/24 Requesting Physician: Santy Raza MD Admitting Provider: Santy Raza MD Attending Provider: Santy Raza MD Primary Care Provider: Kathy Naik MD Consult Narrative Reason for consult: Hyperkalemia History of present illness: The patient is an 83-year-old male with significant past medical history of hypertension, coronary artery disease s/p triple-vessel CABG in 1990, s/p PCI with stents in 2017, cancer s/p TURP, aortic stenosis, CKD stage IIIa and diabetes mellitus type 2 was sent to ED by fish hatchery inspector Dr. Knott and advanced registered nurse Dr. Marie for potassium level of 7.4. Only changes in medications are recent use of amoxicillin use. The patient denied any dizziness, lightheadedness, headache, chest pain, SOB, abdominal pain, any cramping, any changes in bowel or bladder habits. He has been taking Entresto but his spironolactone was stopped 2 weeks ago. The patient was given Kayexalate 30 g p.o. x 1 in the ED and, admitted to telemetry unit for further management. During our evaluation, vitals are fairly stable, CKD stable, potassium 5.6, chloride 113, BUN 53, creatinine 1.8, EGFR 37 calculated osmolality 300. PMH: As mentioned above SHX: Angioplasty in 1988, CABG 1990, blood than 2, back surgery 2013 and 2017, angioplasty with stents in April 2018 allergies: No known allergies Meds: To be reconciled Social history: Occasional alcohol use, no smoking or any illicit drug use Family history: Unremarkable Nephrology consultation was done for further management of hyperkalemia. cc:: cc: Santy Raza MD Review of Systems Review of Systems Systems Reviewed: All systems reviewed, normal except as documented Past Medical History Past Medical History NEUROLOGIC: Negative Neurological Disorders CARDIAC: Positive Angina, Coronary Artery Disease, Congestive Heart Failure and Hypertension; Negative Cardiac Disorders (bipass, stent) RESPIRATORY: Negative Chronic Obstructive Pulmonary Disease (COPD) GASTROINTESTINAL: Negative Gastrointestinal Disorders GENITOURINARY: Positive Prostate Cancer (2001 only surgery); Negative Genitourinary Disorders or Renal Disease MUSCULOSKELETAL: Positive Musculoskeletal Disorders ENT: Positive Cataracts ENDOCRINE: Positive Endocrine Disorders and Diabetes Mellitus Type 2; Negative Diabetes Mellitus Type 1 HEMATOLOGIC: Negative Blood Disorders OTHER HISTORY: Positive Chicken Pox, Measles, Mumps and Prostate Cancer (2002 only surgery); Negative Autoimmune Disease Family History FAMILY HISTORY: Positive Family Respiratory Disorders (brother COPD), Family Gastrointestinal Problems (brother liver ca) and Family Cancer (brother liver ca); Negative Family Psychiatric Problems, Family Cardiac Disorders, Family Surgery or Family Anesthesia Reaction Surgical History SURGICAL: Positive Cardiac Surgery, Open Heart Surgery (1990), Coronary Stent (APPROX 2019), Angiogram (1988) and Tonsillectomy Social History SMOKING STATUS: Never smoker Exam Vital Signs Temp Pulse Resp BP Pulse Ox O2 Del Method 97.0 F 68 17 110/61 97 Room Air 08/05/24 04:00 08/05/24 04:00 08/05/24 04:00 08/05/24 04:00 08/05/24 04:00 08/05/24 04:00 Narrative Exam General: Elderly, cooperative gentleman, no acute distress, Alert and Oriented x 3 HEENT: Moist mucous membranes, oropharynx clear Neck: Supple, No masses, No JVD CVS: S1S2 Regular rate and rhythm, No murmurs, rubs or gallops Lungs: Clear to auscultation with no accessory use, no wheeze no rhonchi Abd: Soft, NT/ND, +BS, no organomegaly Ext: No edema, warm and well perfused Skin: No rash Psych: Appropriate mood and affect Results Labs 08/05/24 05:34 08/05/24 14:01 Labs: Short CBC 08/04/24 08/05/24 Range/Units 12:05 05:34 WBC 7.2 5.1 (3.8-10.6) Thou/mm3 Hgb 14.8 13.7 (13.5-16.0) g/dL Hct 44.0 41.2 (41.0-53.0) % Plt Count 184 167 (140-440) Thou/mm3 BMP 08/04/24 08/04/24 08/05/24 12:05 19:27 05:34 Sodium 137 139 142 Potassium 5.9 H D 5.2 H D 5.6 H Chloride 107 111 H 113 H Carbon Dioxide 20.4 21.7 23.0 BUN 63 H 61 H 53 H Creatinine 2.1 H 1.8 H 1.8 H Glucose 353 H D 163 H D 152 H Calcium 9.9 9.5 9.7 Liver Function 08/04/24 08/05/24 Range/Units 12:05 05:34 Total Bilirubin 0.7 (0.3-1.2) mg/dL AST 29 (0-34) U/L ALT 27 (10-49) U/L Alkaline Phosphatase 100 (46-116) U/L Albumin 4.8 4.1 D (3.4-4.8) gm/dL Quality Measures Quality Measures none Advance care planning discussed with:: patient Medications Home Medications and Allergies Home Medications ?Medication ?Instructions ?Recorded ?Confirmed ?Type aspirin 81 mg tablet,delayed 81 mg PO QDAY 05/12/18 08/04/24 History release (Aspir-) atorvastatin 40 mg tablet 40 mg PO QDAY 05/12/18 08/04/24 History albuterol 90 mcg/actuation aerosol 2 mcg inhalation PRN PRN asthma 06/25/24 08/04/24 History inhaler amlodipine 10 mg-benazepril 40 mg 10 - 40 cap PO DAILY 06/25/24 08/04/24 History capsule Held on 08/05/24. Instructions: hold until you see advanced registered nurse Dr Marie fluticasone furoate 100 2 inh inhalation BID 06/25/24 08/04/24 History mcg-vilanterol 25 mcg/dose inhalation powder (Breo Ellipta) sacubitril 24 mg-valsartan 26 mg 1 tab PO BID 08/04/24 08/04/24 History tablet (Entresto) Held on 08/05/24. Instructions: Hold until you see advanced registered nurse, Dr. Marie Allergies Allergy/AdvReac Type Severity Reaction Status Date / Time No Known Allergies Allergy Verified 08/04/24 11:23 Visit Medications Acetaminophen (Acetaminophen 325 Mg Tablet) 1,000 mg PO Q6H PRN PRN Reason: Fever >101.5 or pain 1-3 Stop: 09/03/24 14:27 Albuterol (Albuterol Rt 2.5 Mg/0.5 Ml Nebu) 2.5 mg INH Q2HR PRN PRN Reason: SHORTNESS OF BREATH OR WHEEZE Stop: 09/03/24 14:27 Aspirin (Aspirin Ec 81 Mg Tabec) 81 mg PO QDAY ALMITA Stop: 09/04/24 08:59 Atorvastatin Calcium (Atorvastatin Calcium 10 Mg Tablet) 40 mg PO HS ALMITA Stop: 09/03/24 20:59 Last Admin: 02/11/25 23:06 Dose: Not Given Dextrose (Dextrose 50%-Water Inj 50 Ml Syringe) 25 ml IV Q15MIN PRN PRN Reason: BG 50-70 responsive npo pt Stop: 09/03/24 17:24 Dextrose (Dextrose 50%-Water Inj 50 Ml Syringe) 50 ml IV Q15MIN PRN PRN Reason: BG <50 OR BG <70 & pt unresponsive Stop: 09/03/24 17:24 Glucagon (Glucagon Inj 1 Mg Vial) 1 mg IM Q15MIN PRN PRN Reason: BG <70, and no IV access Heparin Sodium (Porcine) (Heparin Sod Inj 5000 Unit/Ml Vial) 5,000 unit SC Q12H [facility] Stop: 08/18/24 14:59 Last Admin: 08/05/24 02:03 Dose: 5,000 unit Insulin Human Lispro (Insulin Lispro (Admelog) 1 Unit/0.01 Ml Unit) 0 unit SC [facility]; Protocol Stop: 09/04/24 07:29 Last Admin: 08/05/24 07:23 Dose: Not Given Ondansetron HCl (Ondansetron Inj 2 Mg/Ml Inj 2 Ml) 4 mg IV Q6H PRN; Protocol PRN Reason: NAUSEA OR VOMITING Stop: 09/03/24 14:32 Patiromer (Patiromer Calcium 8.4 Gm Packet (Non-Form)) 8.4 gm PO QDAY [facility] Stop: 09/04/24 08:59 Fluticasone/Salmeterol (Fluticasone/Salmeterol 100/50 14 Dose Inh) 1 puff INH BIDRT [facility] Stop: 09/03/24 18:59 Last Admin: 08/04/24 19:08 Dose: Not Given Sodium Chloride (Sodium Chloride Rt [place] 0.9% 3 Ml Nebu) 3 ml INH PRN PRN PRN Reason: SOLN Stop: 09/03/24 14:27 Sodium Chloride (Sodium Chloride Rt [place] 0.9% 3 Ml Nebu) 3 ml INH PRN PRN PRN Reason: SOLN Stop: 09/03/24 18:05 Discontinued Medications Albuterol (Albuterol Rt 2.5 Mg/0.5 Ml Nebu) 2.5 mg INH X1 ONE Stop: 08/04/24 18:07 Last Admin: 08/04/24 19:08 Dose: Not Given Calcium Gluconate (Calcium Gluconate 10% Inj 1 Gm/10 Ml Vial) 1 gm IV X1 ONE Stop: 08/04/24 11:39 Last Admin: 08/04/24 13:11 Dose: 1 gm Dextrose (Dextrose 50%-Water Inj 50 Ml Syringe) 50 ml IV X1 ONE Stop: 08/04/24 11:39 Last Admin: 08/04/24 13:11 Dose: 50 ml Insulin Human Regular (Insulin Hum Regular 1 Unit/0.01 Ml (Per Unit)) 10 unit IV X1 ONE Stop: 08/04/24 11:39 Last Admin: 08/04/24 13:11 Dose: 10 unit Sodium Polystyrene Sulfonate (Sod Polystyrene Sulfon Susp 15 Gm/60 Ml Btl) 30 gm SC X1 ONE Stop: 08/04/24 11:39 Last Admin: 08/04/24 13:11 Dose: 30 gm Sodium Polystyrene Sulfonate (Sod Polystyrene Sulfon Susp 15 Gm/60 Ml Btl) 30 gm PO X1 ONE Stop: 08/05/24 00:20 Last Admin: 08/05/24 01:00 Dose: 30 gm Assessment & Plan Plan The patient is an 83-year-old male with significant past medical history of hypertension, coronary artery disease s/p triple-vessel CABG in 1990, s/p PCI with stents in 2018, cancer s/p TURP, aortic stenosis, CKD stage IIIa and diabetes mellitus type 2 was sent to ED by fish hatchery inspector Dr. Knott and advanced registered nurse Dr. Marie for potassium level of 7.4. Nephrology consultation was done for further management of hyperkalemia. #Hyperkalemia Likely in the setting of underlying CKD Patient was sent by his advanced registered nurse and fish hatchery inspector to the ED for potassium level of 7.4. Received 30 g x 1 p.o. Kayexalate in the ED 08/05/2024: Potassium level was 5.6 -Received 1 dose of Kayexalate 30 g x 1 this morning -Okay to start on Veltassa 8.4 g daily, as his potassium level on 07/29/2024 was 6.1 -Monitor potassium level every 4-6 hours until less than 5 -Renal diet -Recommended to avoid diet containing high potassium like avocado, banana, tomatoes, oranges or potatoes or restricted eating #DANTE on CKD The patient's baseline creatinine is 1.5-1.6, presented with creatinine of 1.8. Baseline GFR in the 40s, presented with GFR 37, BUN 61 -Renally dose medications -Avoid nephrotoxin -Continue to monitor renal panel daily #History of HFrEF with EF 40 to 45% with mild mitral and tricuspid regurgitation and wall motion abnormalities #Hypertension #Coronary artery disease status post triple-vessel bypass and PCI #Severe aortic stenosis #History of usl-[id number] diabetes -Management deferred to primary hospitalist team Thank you for your opportunity to participate nephrology team in this patient care. The patient's management plan was discussed with my attending physician MD Guido Gallagher MD, PGY2 Attending Provider Attestation/Addendum Patient seen and examined with resident physician Dr. Otoole. Note reviewed, agree with findings and recommendations. Patient came to my office 1 time and noted to have hyperkalemia and acute renal failure. Potassium was significantly elevated and I had to send him to the hospital. Patient also noted to have critical . Follows up with Dr. Marie. Might need a TAVR. Thank you Santy for allowing me to participate in the care of Mr. Gaytan
[2024-08-05] MEDS: PATIROMER CALCIUM 8.4 GM PACKET (NON-FORM) PO (09:17)
[2024-08-05] MEDS: ASPIRIN EC 81 MG TABEC PO (09:17)
[2024-08-05 09:53] VITALS: PULSE 59; RESP 18; O2SAT 979
[2024-08-05] MEDS: INSULIN LISPRO (AdmeLOG) 1 UNIT/0.01 ML UNIT SC ×2 (11:47→16:54)
[2024-08-05 12:00] VITALS: BP 122/66; PULSE 58; PULSE 63; RESP 18; TEMP 36.6; O2SAT 99
--- NOTE | 2024-08-05 14:18 | PD.RESDS ---
Planned Discharge Date 08/05/24 DS: Providers Provider Date of admission: 08/04/24 14:28 Primary care physician: Kathy Naik MD Admitting Provider: Santy Raza MD Attending Provider on Admission: Santy Raza MD Consults: 08/04/24 12:26 Consult to Nephrology Stat Comment: Consulting Provider: Kathy Naik Attending Provider on DC: Santy Raza MD Discharging Provider: Santy Raza MD DS: Diagnosis Problem List Completed Was Problem List Reviewed/Reconciled?: Yes Hospital Course Hospital Course Hospital course: Bradford is a 83 y/o male with PMHx of hypertension, CAD s/p triple vessel CABG in 1990, s/p PCI (unsure of number of stents) in 2017, prostate cancer s/p TURP, aortic stenosis and non-insulin dependent DM who was admitted to [facility] on 08/04/2024 for asymptomatic hyperkalemia. Pt was sent from his screen printing press operator, Dr. Marie, to the ED for further evaluation after it was noticed he had elevated potassium levels. Of note, he had recently been told to stop spironolactone. Patient arrived with a blood pressure of 149/64, afebrile and with otherwise unremarkable vitals. Patient was worked up and was found to have a white count of 7.2, hemoglobin of 14.8, sodium of 137, potassium 7.4, bicarb of 23, BUN/creatinine of 69 2.0, glucose of 116, magnesium 2.2. EKG was done and showed sinus bradycardia and possible peaked T waves in V3. Patient was given calcium gluconate, insulin 10 units with D5, and 30 gm of Kayexalate. Medicine and nephrology were consulted and patient was admitted to floors. While on the floors, pt was also given additional 30 gm Kayexalate. We spoke with Dr. Marie, his screen printing press operator and had recommended to further stop holding all medicines related to hyperkalemia and to follow up with him. He was also given Valtessa 8.4 gm while in the hospital. He had repeat renal panels, last renal panel showed potassium of 4.7. We recommended patient to avoid NSAIDs, and to hold Entresto until patient is to see his screen printing press operator, Dr. Marie. Pt does have severe aortic stenosis in which his screen printing press operator, Dr. Marie, is managing. #Severe hyperkalemia #Asymptomatic hyperkalemia #DANTE #History of CKD, stage III #History of HFrEF with EF 40 to 45% with mild mitral and tricuspid regurgitation and wall motion abnormalities #History of hypertension #History of coronary artery disease status post triple-vessel bypass and PCI #History of severe aortic stenosis #History of pyv-ftnqysc-doqcmvgpk diabetes #History of prostate cancer status post TURP Discharge instructions: Follow up with your screen printing press operator, Dr. Marie within one week If you don't have a PCP, please follow up with me Dr. Steve, or any one of my colleagues (My schedule will be ) [facility], [address] [place] [address] [place] [id number]. Otherwise, follow up with your PCP within one week Take your medicines as prescribed Follow up with your layout man, Dr. Naik Take Valetessa 8.4 gm once a day by mouth until you see your layout man, Dr. Naik Hold on taking Entresto until you see you screen printing press operator, Dr. Marie Avoid taking NSAIDs including Ibuprofen (motrin) and Naproxen (Aleeve) Patient seen and care discussed with my senior resident, Dr. Kauffman , and my attending physician, Dr. Luz Marina Steve, PGY-1 Time Spent with Patient Time attestation: Total time spent providing and/or coordinating discharge services: Time spent: Greater than 30 minutes Exam Vital Signs Temp Pulse Resp BP Pulse Ox O2 Del Method 97.8 F 63 18 122/66 99 Room Air 08/05/24 12:08/05/24 12:08/05/24 12:08/05/24 12:08/05/24 12:08/05/24 12:00 Narrative Exam General: AAOx3, NAD, pleasant, wearing glasses, looks younger than 83 HEENT: Moist mucous membranes, conjunctiva clear, EOMI, PERRLA, Cardiovascular: S1, S2, radial pulses +2 bilat, RRR, possible murmur heard in R US Pulmonary: CTAB bilat no cough, no wheezing GI: No tenderness to light or deep palpitation, no guarding, rigidity, rebound tenderness or distension Extremities: No presence of trace or pitting edema in lower extremities bilaterally, dorsalis pedis pulses +2 bilaterally Neuro: AAOx3, no focal motor or sensory deficits in the UE or LE bilat Psych: Good judgement, thought and behavior. Cooperative Discharge Plan Plan Patient Disposition: HOME (Self Care) Prescriptions/Referrals Prescriptions/Med Rec: New Veltassa 8.4 gram powder in packet 8.4 g PO QDAY Qty: 30 0RF Held sacubitril-valsartan [Entresto] 24-26 mg tablet 1 tab PO BID Hold Instructions: Hold until you see screen printing press operator, Dr. Marie amlodipine-benazepril 10-40 mg capsule 10 - 40 cap PO DAILY Hold Instructions: hold until you see screen printing press operator Dr Marie Patient Comments: TAKE 1 CAPSULE DAILY No Action atorvastatin 40 mg Tablet 40 mg PO QDAY aspirin [Aspir-81] 81 mg Tablet,Delayed Release (Dr/Ec) 81 mg PO QDAY glipizide 5 mg Tablet 5 mg PO QDAY albuterol 90 mcg/actuation Aerosol 2 mcg INHALATION PRN PRN (Reason: asthma) fluticasone furoate-vilanterol [Breo Ellipta] 100-25 mcg/dose blister with device 2 inh INHALATION BID Patient Comments: INHALE 1 PUFF BY MOUTH DAILY furosemide 20 mg tablet 20 mg PO BID Qty: 60 0RF Referrals: Kathy Naik MD [Primary Care Provider] - Patient/Caregiver Discharge Instructions Print Language: Mongolian Stand Alone Forms: Jacqueline Award Info., Patient Portal Info Letter Discharge Order Discharge Orders: Discharge (Routine); Ordered 08/05/24 Ordered By: Carmen Steve Quality Discharge Quality Measures VTE prophylaxis (Heparin ) Attestestation Attestation I reviewed labs, imaging, EKG, home medications and prior available records. Face to face evaluation was performed by me. I have personally examined the patient and discussed assessment and plan with the IM team. I reviewed the resident note and agree with the plan with exceptions as below. CAD status post CABG CKD stage IIIb Chronic HFrEF EF 40 to 45% Essential hypertension Hyperkalemia Potassium improved. Gave her Veltassa Held home Entresto Received dextrose, insulin, and Kayexalate in the ED. Monitor BMP closely Creatinine is stable at baseline. Monitor kidney function. Avoid nephrotoxins. Renally dosed medications Outpatient follow-up with nephrology Outpatient follow-up with cardiology Dr. Marie Continue home aspirin Time spent is 40 minutes. More than 50% of the time was spent on patient education and coordination of care.
[2024-08-05 14:45] LABS: Anion Gap 5 (7-16); BUN/Creatinine Ratio 24 Ratio (12-20); Blood Urea Nitrogen 44 mg/dL (9-23); Calcium 9.6 mg/dL (8.3-10.6); Calcium (Corrected) 9.6 mg/dL (8.5-10.1); Carbon Dioxide 23.6 mMol/L (20.0-31.0); Chloride 111 mMol/L (98-107); Creatinine (Component) 1.8 mg/dL (0.6-1.3); Estimated Creatinine Clearance 29.6 mL/min (>60); Glucose 177 mg/dL (74-106); Osmolality,Calculated 294 (275-295); Phosphorous 4.1 mg/dL (2.4-5.1); Potassium 4.7 mMol/L (3.4-5.1); Sodium 140 mMol/L (136-145); eGFR 37 See Note
--- NOTE | 2024-08-05 15:07 | PC.SS ---
Rounding Note: Cardiology recommendations are pending.
--- NOTE | 2024-08-05 15:36 | PC.SS ---
FULL TIME STAFF INTERPRETER conducted bedside contact with the patient conduct initial assessment and to discuss discharge planning.? Patient confirmed demographic information.? Patient resides at home with spouse, Aaliyah Gaytan .? Patient does not utilize any form of DME to assist with ambulation.? Patient does not utilize home oxygen.? Patient describes the ability to complete ADL?s independently.? Patient identified spouse, Aaliyah Gaytan; as medical surrogate decision maker.? Patient?s PCP is .? Patient does not participate with dialysis.? Patient?s convention services director is Dr. Marie.? Plan is for the patient to return home at the time of discharge.? Family will provide transportation on behalf of the patient. ?No discharge needs identified by the patient.? No further intervention required at this time, social worker assistant will be available to address any further concerns.? Next of Kin: Aaliyah Lucila D/C Plan: Home
[2024-08-05 16:00] VITALS: BP 126/69; PULSE 60; PULSE 61; RESP 15; TEMP 36.9; O2SAT 98
== END 2024-08-05 18:35 | disposition home or self-care (01) | DRG 683 ==
LOC: SERX 14:45 → SERHOLD 15:21 → S2NX 08-05 05:59
PROVIDERS: Physician Assistant; Admitting Provider Student in an Organized Health Care Education/Training Program; Emergency Provider Emergency Medicine; PCP Internal Medicine; Visit Provider Student in an Organized Health Care Education/Training Program
DX: N17.9 Acute kidney failure, unspecified (principal); E87.5 Hyperkalemia; I13.0 Hypertensive heart and chronic kidney disease with heart failure and stage 1 through stage 4 chronic kidney disease, or unspecified chronic kidney disease; I50.22 Chronic systolic (congestive) heart failure; I08.3 Combined rheumatic disorders of mitral, aortic and tricuspid valves; I25.10 Atherosclerotic heart disease of native coronary artery without angina pectoris; E11.22 Type 2 diabetes mellitus with diabetic chronic kidney disease; N18.32 Chronic kidney disease, stage 3b; R00.1 Bradycardia, unspecified; Z95.1 Presence of aortocoronary bypass graft; Z85.46 Personal history of malignant neoplasm of prostate; Z90.79 Acquired absence of other genital organ(s); Z95.5 Presence of coronary angioplasty implant and graft; Z79.82 Long term (current) use of aspirin; Z79.84 Long term (current) use of oral hypoglycemic drugs; Z79.899 Other long term (current) drug therapy
CPT/HCPCS: 36415; 80048; 80053; 80069; 82436; 82570; 83735; 84133; 84300; 84540; 85025; 85610; 85730; 93005; 94664; 96372; 99285; J0612; J1643; J1815; A9270

== ENCOUNTER → 2024-08-04 | Outpatient (CLI) | payer MEDICARE, OTHER, SELFPAY ==
[2024-08-04 08:51] LABS: Collection Type, Urine Clean Catch; Squamous Epithelial Cell,Urine 0 /hpf (0-5); WBC,Urine 0 /hpf (0-5)
[2024-08-04 09:15] LABS: Basophils # (Auto) 0.1 Thou/mm3 (0.0-0.2); Basophils % (Auto) 1 % (0-2.5); Eosinophils # (Auto) 0.2 Thou/mm3 (0.0-0.5); Eosinophils % (Auto) 4 % (0-10); Hematocrit 44.9 % (41.0-53.0); Immature Granulocytes % (Auto) 0 % (0-0); Lymphocytes # (Auto) 1.2 Thou/mm3 (1.0-4.8); Lymphocytes % (Auto) 20 % (10-50); Mean Corpuscular HGB Conc 33.4 g/dl (31.0-37.0); Mean Corpuscular Hemoglobin 32.2 pg (25.0-35.0); Mean Corpuscular Volume 96 fL (80-100); Monocytes # (Auto) 0.7 Thou/mm3 (0.0-0.8); Monocytes % (Auto) 12 % (0-12); Neutrophils # (Auto) 3.7 Thou/mm3 (1.8-7.7); Neutrophils % (Auto) 63 % (37-80); Nucleated Red Blood Cell % 0 /100 WBC (0); Platelet Count 184 Thou/mm3 (140-440); RDW Standard Deviation 46.8 fL (35.1-43.9); Red Blood Count 4.66 Miln/mm3 (4.50-5.90); White Blood Count 5.9 Thou/mm3 (3.8-10.6)
[2024-08-04 09:26] LABS: Bilirubin,Urine Negative (Negative); Blood,Urine Negative (Negative); Clarity,Urine Clear (Clear/Hazy); Color,Urine Colorless (Lt Yel-Yel); Glucose, Urine Negative (Negative); Hyaline Casts,Urine < 1 /hpf (0-1); Ketones,Urine Negative (Negative); Leukocyte Esterase,Urine Negative (Negative); Nitrite,Urine Negative (Negative); PH,Urine 5.5 (5.0-7.0); Protein,Urine Negative (Neg - Trace); RBC,Urine < 1 /hpf (0-3); Specific Gravity,Urine 1.011 (1.001-1.035); Urobilinogen,Urine Negative mg/dL (0.0-1.0)
[2024-08-04 09:40] LABS: Parathyroid Hormone Intact 55.7 pg/ml (18.5-88.0)
[2024-08-04 09:52] LABS: Alanine Aminotransferase 29 U/L (10-49); Albumin, Serum 4.6 gm/dL (3.4-4.8); Albumin/Globulin Ratio 2.4 (1.2-2.2); Alkaline Phosphatase 100 U/L (46-116); Anion Gap 5 (7-16); Aspartate Amino Transferase 29 U/L (0-34); BUN/Creatinine Ratio 35 Ratio (12-20); Bilirubin,Total 0.6 mg/dL (0.3-1.2); Blood Urea Nitrogen 69 mg/dL (9-23); Calcium 9.9 mg/dL (8.3-10.6); Calcium (Corrected) 9.9 mg/dL (8.5-10.1); Carbon Dioxide 23.3 mMol/L (20.0-31.0); Chloride 109 mMol/L (98-107); Globulin 1.9 gm/dL (2.3-3.5); Glucose 116 mg/dL (74-106); Osmolality,Calculated 294 (275-295); Sodium 137 mMol/L (136-145); Total Protein 6.5 gm/dL (5.7-8.2); eGFR 33 See Note
[2024-08-04 09:54] LABS: Potassium 7.4 mMol/L (3.4-5.1)
== END | disposition home or self-care (01) ==
LOC: COPL 07:35
PROVIDERS: PCP Internal Medicine; Referring Provider Internal Medicine Cardiovascular Disease; Visit Provider Internal Medicine Cardiovascular Disease
DX: I12.9 Hypertensive chronic kidney disease with stage 1 through stage 4 chronic kidney disease, or unspecified chronic kidney disease (principal); N18.30 Chronic kidney disease, stage 3 unspecified
CPT/HCPCS: 36415; 80053; 81001; 83970; 85025

== ENCOUNTER → 2024-08-21 | Outpatient (CLI) | payer MEDICARE, OTHER, SELFPAY ==
[2024-08-21 09:28] LABS: Collection Type, Urine Clean Catch
[2024-08-21 09:29] LABS: Basophils % (Auto) 1 % (0-2.5); Eosinophils # (Auto) 0.1 Thou/mm3 (0.0-0.5); Eosinophils % (Auto) 3 % (0-10); Hematocrit 42.7 % (41.0-53.0); Hemoglobin 14.6 g/dL (13.5-16.0); Immature Granulocytes % (Auto) 0 % (0-0); Immature Granulocytes Auto 0.01 Thou/mm3 (0.00-0.00); Lymphocytes # (Auto) 1.2 Thou/mm3 (1.0-4.8); Lymphocytes % (Auto) 23 % (10-50); Mean Corpuscular HGB Conc 34.2 g/dl (31.0-37.0); Mean Corpuscular Hemoglobin 32.2 pg (25.0-35.0); Mean Corpuscular Volume 94 fL (80-100); Monocytes # (Auto) 0.6 Thou/mm3 (0.0-0.8); Monocytes % (Auto) 11 % (0-12); Neutrophils # (Auto) 3.4 Thou/mm3 (1.8-7.7); Neutrophils % (Auto) 63 % (37-80); Nucleated Red Blood Cell % 0 /100 WBC (0); Platelet Count 210 Thou/mm3 (140-440); Red Blood Count 4.53 Miln/mm3 (4.50-5.90); White Blood Count 5.5 Thou/mm3 (3.8-10.6)
[2024-08-21 09:35] LABS: B-Type Natriuretic Peptide 240 pg/mL (0-100)
[2024-08-21 09:43] LABS: Albumin, Serum 4.6 gm/dL (3.4-4.8); Anion Gap 11 (7-16); BUN/Creatinine Ratio 24 Ratio (12-20); Blood Urea Nitrogen 38 mg/dL (9-23); Carbon Dioxide 27.1 mMol/L (20.0-31.0); Chloride 106 mMol/L (98-107); Creatinine (Component) 1.6 mg/dL (0.6-1.3); Glucose 65 mg/dL (74-106); Osmolality,Calculated 293 (275-295); Phosphorous 3.3 mg/dL (2.4-5.1); Potassium 4.2 mMol/L (3.4-5.1); Sodium 144 mMol/L (136-145); eGFR 43 See Note
[2024-08-21 10:24] LABS: Bilirubin,Urine Negative (Negative); Blood,Urine Negative (Negative); Clarity,Urine Clear (Clear/Hazy); Color,Urine Lt-Yellow (Lt Yel-Yel); Glucose, Urine Negative (Negative); Hyaline Casts,Urine 1 /hpf (0-1); Ketones,Urine Negative (Negative); Leukocyte Esterase,Urine Negative (Negative); Nitrite,Urine Negative (Negative); PH,Urine 5.5 (5.0-7.0); Protein,Urine 1+ (Neg - Trace); RBC,Urine 1 /hpf (0-3); Specific Gravity,Urine 1.015 (1.001-1.035); Squamous Epithelial Cell,Urine < 1 /hpf (0-5); Urobilinogen,Urine Negative mg/dL (0.0-1.0); WBC,Urine 1 /hpf (0-5)
== END | disposition home or self-care (01) ==
LOC: COPL 08:26
PROVIDERS: PCP Internal Medicine; Referring Provider Internal Medicine Cardiovascular Disease; Visit Provider Internal Medicine Cardiovascular Disease
DX: I13.0 Hypertensive heart and chronic kidney disease with heart failure and stage 1 through stage 4 chronic kidney disease, or unspecified chronic kidney disease (principal); N18.32 Chronic kidney disease, stage 3b; I50.9 Heart failure, unspecified
CPT/HCPCS: 36415; 80069; 81001; 83880; 85025

== ENCOUNTER → 2024-09-24 | Outpatient (CLI) | payer MEDICARE, OTHER, SELFPAY ==
[2024-09-24 08:08] LABS: Collection Type, Urine Clean Catch; Squamous Epithelial Cell,Urine 0 /hpf (0-5)
[2024-09-24 08:34] LABS: Bilirubin,Urine Negative (Negative); Blood,Urine Negative (Negative); Clarity,Urine Clear (Clear/Hazy); Color,Urine Lt-Yellow (Lt Yel-Yel); Glucose, Urine Negative (Negative); Hyaline Casts,Urine 1 /hpf (0-1); Ketones,Urine Negative (Negative); Leukocyte Esterase,Urine Negative (Negative); Nitrite,Urine Negative (Negative); Protein,Urine 1+ (Neg - Trace); RBC,Urine < 1 /hpf (0-3); Specific Gravity,Urine 1.011 (1.001-1.035); Urobilinogen,Urine Negative mg/dL (0.0-1.0); WBC,Urine 1 /hpf (0-5)
[2024-09-24 08:35] LABS: Basophils # (Auto) 0.1 Thou/mm3 (0.0-0.2); Basophils % (Auto) 1 % (0-2.5); Eosinophils # (Auto) 0.2 Thou/mm3 (0.0-0.5); Eosinophils % (Auto) 3 % (0-10); Hematocrit 43.4 % (41.0-53.0); Hemoglobin 14.7 g/dL (13.5-16.0); Immature Granulocytes % (Auto) 0 % (0-0); Immature Granulocytes Auto 0.01 Thou/mm3 (0.00-0.00); Lymphocytes # (Auto) 1.2 Thou/mm3 (1.0-4.8); Lymphocytes % (Auto) 24 % (10-50); Mean Corpuscular HGB Conc 33.9 g/dl (31.0-37.0); Mean Corpuscular Hemoglobin 32.5 pg (25.0-35.0); Mean Corpuscular Volume 96 fL (80-100); Monocytes # (Auto) 0.5 Thou/mm3 (0.0-0.8); Monocytes % (Auto) 10 % (0-12); Neutrophils # (Auto) 3.1 Thou/mm3 (1.8-7.7); Neutrophils % (Auto) 62 % (37-80); Nucleated Red Blood Cell % 0 /100 WBC (0); Platelet Count 219 Thou/mm3 (140-440); RDW Standard Deviation 53.6 fL (35.1-43.9); Red Blood Count 4.52 Miln/mm3 (4.50-5.90)
[2024-09-24 08:36] LABS: B-Type Natriuretic Peptide 251 pg/mL (0-100)
[2024-09-24 08:50] LABS: Albumin, Serum 4.5 gm/dL (3.4-4.8); Anion Gap 6 (7-16); BUN/Creatinine Ratio 16 Ratio (12-20); Blood Urea Nitrogen 25 mg/dL (9-23); Calcium 9.6 mg/dL (8.3-10.6); Calcium (Corrected) 9.6 mg/dL (8.5-10.1); Carbon Dioxide 30.7 mMol/L (20.0-31.0); Chloride 105 mMol/L (98-107); Creatinine (Component) 1.6 mg/dL (0.6-1.3); Glucose 136 mg/dL (74-106); Osmolality,Calculated 289 (275-295); Phosphorous 3.8 mg/dL (2.4-5.1); Potassium 4.9 mMol/L (3.4-5.1); Sodium 142 mMol/L (136-145); eGFR 43 See Note
== END | disposition home or self-care (01) ==
PROVIDERS: PCP Internal Medicine; Referring Provider Internal Medicine; Visit Provider Internal Medicine Cardiovascular Disease
DX: I13.0 Hypertensive heart and chronic kidney disease with heart failure and stage 1 through stage 4 chronic kidney disease, or unspecified chronic kidney disease (principal); E78.5 Hyperlipidemia, unspecified; I50.9 Heart failure, unspecified; N18.32 Chronic kidney disease, stage 3b
CPT/HCPCS: 36415; 80069; 81001; 83880; 85025

== ENCOUNTER → 2024-11-03 | Outpatient (CLI) | payer MEDICARE, OTHER, SELFPAY ==
[2024-11-03 09:46] LABS: B-Type Natriuretic Peptide 256 pg/mL (0-100)
[2024-11-03 09:47] LABS: Alanine Aminotransferase 28 U/L (10-49); Albumin, Serum 4.8 gm/dL (3.4-4.8); Albumin/Globulin Ratio 2.2 (1.2-2.2); Alkaline Phosphatase 88 U/L (46-116); Anion Gap 7 (7-16); Anion Gap 8 (7-16); Aspartate Amino Transferase 32 U/L (0-34); BUN/Creatinine Ratio 17 Ratio (12-20); BUN/Creatinine Ratio 18 Ratio (12-20); Bilirubin,Total 0.9 mg/dL (0.3-1.2); Blood Urea Nitrogen 24 mg/dL (9-23); Blood Urea Nitrogen 25 mg/dL (9-23); Calcium 9.5 mg/dL (8.3-10.6); Calcium 9.6 mg/dL (8.3-10.6); Calcium (Corrected) 9.5 mg/dL (8.5-10.1); Carbon Dioxide 26.5 mMol/L (20.0-31.0); Carbon Dioxide 26.6 mMol/L (20.0-31.0); Chloride 105 mMol/L (98-107); Creatinine (Component) 1.4 mg/dL (0.6-1.3); Globulin 2.2 gm/dL (2.3-3.5); Glucose 93 mg/dL (74-106); Glucose 94 mg/dL (74-106); Osmolality,Calculated 281 (275-295); Potassium 4.6 mMol/L (3.4-5.1); Potassium 4.7 mMol/L (3.4-5.1); Sodium 139 mMol/L (136-145); eGFR 50 See Note
== END | disposition home or self-care (01) ==
PROVIDERS: PCP Internal Medicine; Referring Provider Internal Medicine Cardiovascular Disease; Visit Provider Internal Medicine Cardiovascular Disease
DX: I11.0 Hypertensive heart disease with heart failure (principal); I50.9 Heart failure, unspecified; N17.9 Acute kidney failure, unspecified; E78.5 Hyperlipidemia, unspecified
CPT/HCPCS: 36415; 80048; 80053; 83880

== ENCOUNTER → 2025-02-01 | Outpatient (CLI) | payer MEDICARE, OTHER, SELFPAY ==
[2025-02-01 09:24] LABS: Collection Type, Urine Clean Catch; Squamous Epithelial Cell,Urine 0 /hpf (0-5)
[2025-02-01 09:57] LABS: Basophils # (Auto) 0.1 Thou/mm3 (0.0-0.2); Basophils % (Auto) 1 % (0-2.5); Eosinophils # (Auto) 0.1 Thou/mm3 (0.0-0.5); Eosinophils % (Auto) 2 % (0-10); Hematocrit 45.0 % (41.0-53.0); Hemoglobin 15.6 g/dL (13.5-16.0); Immature Granulocytes Auto 0.03 Thou/mm3 (0.00-0.00); Lymphocytes # (Auto) 1.4 Thou/mm3 (1.0-4.8); Lymphocytes % (Auto) 24 % (10-50); Mean Corpuscular HGB Conc 34.7 g/dl (31.0-37.0); Mean Corpuscular Hemoglobin 34.3 pg (25.0-35.0); Mean Corpuscular Volume 99 fL (80-100); Monocytes # (Auto) 0.6 Thou/mm3 (0.0-0.8); Monocytes % (Auto) 10 % (0-12); Neutrophils # (Auto) 3.6 Thou/mm3 (1.8-7.7); Neutrophils % (Auto) 62 % (37-80); Nucleated Red Blood Cell # 0.00 Thou/mm3 (0.00-0.00); Nucleated Red Blood Cell % 0 /100 WBC (0); Platelet Count 199 Thou/mm3 (140-440); RDW Standard Deviation 47.8 fL (35.1-43.9); Red Blood Count 4.55 Miln/mm3 (4.50-5.90); White Blood Count 5.8 Thou/mm3 (3.8-10.6)
[2025-02-01 10:03] LABS: Creatinine,Random Urine < 13 mg/dL (30-125)
[2025-02-01 10:06] LABS: Parathyroid Hormone Intact 33.9 pg/ml (18.5-88.0)
[2025-02-01 10:08] LABS: Prostate Specific Antigen < 0.10 ng/mL (0-4.00)
[2025-02-01 10:12] LABS: Glucose Estimated Average 134 mg/dL (80-131); Hemoglobin A1C 6.3 % Hgb (4.8-6.0)
[2025-02-01 10:14] LABS: Bilirubin,Urine Negative (Negative); Blood,Urine Negative (Negative); Clarity,Urine Clear (Clear/Hazy); Color,Urine Colorless (Lt Yel-Yel); Glucose, Urine Negative (Negative); Ketones,Urine Negative (Negative); Leukocyte Esterase,Urine Negative (Negative); Nitrite,Urine Negative (Negative); PH,Urine 6.0 (5.0-7.0); Protein,Urine Negative (Neg - Trace); RBC,Urine < 1 /hpf (0-3); Specific Gravity,Urine 1.007 (1.001-1.035); Urobilinogen,Urine Negative mg/dL (0.0-1.0); WBC,Urine < 1 /hpf (0-5)
[2025-02-01 10:17] LABS: Alanine Aminotransferase 28 U/L (10-49); Albumin, Serum 5.2 gm/dL (3.4-4.8); Albumin/Globulin Ratio 2.4 (1.2-2.2); Alkaline Phosphatase 87 U/L (46-116); Anion Gap 13 (7-16); Aspartate Amino Transferase 32 U/L (0-34); BUN/Creatinine Ratio 14 Ratio (12-20); Bilirubin,Total 1.2 mg/dL (0.3-1.2); Blood Urea Nitrogen 21 mg/dL (9-23); Calcium 10.0 mg/dL (8.3-10.6); Calcium (Corrected) 10.0 mg/dL (8.5-10.1); Carbon Dioxide 24.1 mMol/L (20.0-31.0); Cardiac Risk Estimate 2.5 RATIO (4.0-6.7); Chloride 106 mMol/L (98-107); Cholesterol 197 mg/dL (132-200); Creatinine (Component) 1.5 mg/dL (0.6-1.3); Globulin 2.2 gm/dL (2.3-3.5); Glucose 85 mg/dL (74-106); HDL Cholesterol 79 mg/dL (40-60); LDL Cholesterol,Calculated 99 mg/dL (0-130); Osmolality,Calculated 286 (275-295); Potassium 4.7 mMol/L (3.4-5.1); Sodium 143 mMol/L (136-145); Thyroid Stimulating Hormone 1.24 uIU/mL (0.55-4.78); Total Protein 7.4 gm/dL (5.7-8.2); Triglycerides 97 mg/dL (30-150); eGFR 46 See Note
[2025-02-01 10:24] LABS: B-Type Natriuretic Peptide 356 pg/mL (0-100)
== END | disposition home or self-care (01) ==
PROVIDERS: PCP Internal Medicine; Referring Provider Internal Medicine Cardiovascular Disease; Visit Provider Internal Medicine Cardiovascular Disease
DX: I13.0 Hypertensive heart and chronic kidney disease with heart failure and stage 1 through stage 4 chronic kidney disease, or unspecified chronic kidney disease (principal); E11.22 Type 2 diabetes mellitus with diabetic chronic kidney disease; N18.30 Chronic kidney disease, stage 3 unspecified; I50.9 Heart failure, unspecified; E78.5 Hyperlipidemia, unspecified; N17.9 Acute kidney failure, unspecified
CPT/HCPCS: 36415; 80053; 80061; 81001; 82570; 83036; 83880; 83970; 84153; 84443; 85025

== ENCOUNTER → 2025-06-09 | Outpatient (CLI) | payer MEDICARE, OTHER, SELFPAY ==
[2025-06-09 14:12] LABS: Albumin, Serum 4.9 gm/dL (3.4-4.8); Anion Gap 15 (7-16); BUN/Creatinine Ratio 11 Ratio (12-20); Blood Urea Nitrogen 19 mg/dL (9-23); Calcium 9.7 mg/dL (8.3-10.6); Calcium (Corrected) 9.7 mg/dL (8.5-10.1); Carbon Dioxide 21.8 mMol/L (20.0-31.0); Chloride 107 mMol/L (98-107); Creatinine (Component) 1.7 mg/dL (0.6-1.3); Glucose 153 mg/dL (74-106); Osmolality,Calculated 292 (275-295); Phosphorous 3.3 mg/dL (2.4-5.1); Potassium 3.8 mMol/L (3.4-5.1); Sodium 144 mMol/L (136-145); eGFR 40 See Note
== END | disposition home or self-care (01) ==
LOC: COPL 12:34
PROVIDERS: PCP Internal Medicine Cardiovascular Disease; Referring Provider Internal Medicine Cardiovascular Disease; Visit Provider Internal Medicine Cardiovascular Disease
DX: I50.9 Heart failure, unspecified (principal); E78.5 Hyperlipidemia, unspecified
CPT/HCPCS: 36415; 80069